=== PATIENT | female | born 1965 | race Caucasian/White ===

== ENCOUNTER 2016-09-23 18:50 | Emergency (ER) | payer BC ==
[2016-09-23] MEDS ORDERED: SODIUM CHLORIDE 0.9% 500 ML IV STA (21:07)
[2016-09-23] MEDS ORDERED: MORPHINE SULFATE 4 MG/ML SYRINGE IVP STA (21:07)
[2016-09-23 21:25] LABS: Appearance,Urine Turbid (Clear); Bilirubin,Urine Negative (Negative); Glucose,Urine (UA) Negative (Negative); Ketones,Urine Negative (Negative); Leukocyte Esterase,Urine Large (Negative); Mucus,Urine Occasional /hpf; Nitrite,Urine Negative (Negative); PH, Urine 5.5 (5.0-8.0); Particle Count 25387; Protein,Urine 2+ (Negative); RBC,Urine >182 /hpf (0-5); Specific Gravity,Urine 1.018 (1.001-1.035); Squamous Epithelial Cell,Urine 5 /hpf (0-4); UA Billing (MACRO vs. MICRO) MICRO; Urobilinogen,Urine <2.0 mg/dL (<2.0); WBC,Urine >182 /hpf (0-5)
[2016-09-23 21:46] LABS: Basophils # (A) 0.1 k/uL (0-0.2); Basophils % (A) 0 %; CH 30.2; Eosinophils # (A) 0.4 k/uL (0-0.7); Eosinophils % (A) 3 %; HCT 34.2 % (34.0-46.0); HDW 3.35; HGB 11.9 gm/dL (11.4-16.0); Luc # (Auto) 0.19; Luc % (Auto) 1; Lymphocytes # (A) 3.6 k/uL (1.0-4.8); Lymphocytes % (A) 24 %; MCH 31.2 pg (25.0-35.0); MCHC 34.9 g/dL (31.0-37.0); MCV 89.6 fL (80.0-100.0); Mean Platelet Volume 7.9; Monocytes # (A) 0.5 k/uL (0-1.0); Monocytes % (A) 4 %; Neutrophils # (A) 10.3 k/uL (1.3-7.7); Neutrophils % (A) 68 %; RBC 3.82 m/uL (3.80-5.40); RDW 15.1 % (11.5-15.5); WBC 15.1 k/uL (3.8-10.6)
[2016-09-23 21:55] LABS: Calcium 10.2 mg/dL (8.4-10.2); Potassium 3.9 mmol/L (3.5-5.1)
[2016-09-23 21:57] LABS: INR 1.5 (<1.2); Partial Thromboplastin Time 27.9 sec (22.0-30.0); Prothrombin Time 14.5 sec (9.0-12.0)
[2016-09-23] MEDS ORDERED: SULFAMETHOX-TMP 800-160MG 1 EACH TAB PO STA (22:05)
[2016-09-23] MEDS ORDERED: CEPHALEXIN 500MG STARTER PACK 4 CAP BTL PO STA (22:07)
--- NOTE | 2016-09-23 22:12 | ED ---
Female Urogenital HPI - General Chief complaint: Urogenital Stated complaint: HEMATURIA Source: patient Mode of arrival: ambulatory Limitations: no limitations - History of Present Illness Initial comments: 51-year-old female with significant past medical history presented for evaluation of hematuria. She states that she is on Coumadin for peripheral vascular disease and recent clotting. She was informed by her vascular surgeon to return to the ED if she should have any bleeding abnormalities. She also currently has a ureteral stent due to kidney stones. She states today she had no flank pain however when she went to the bathroom she noted blood in her urine. There is also associated dysuria. She denies any associated fevers, chills, nausea, vomiting, or other constitutional symptoms. - Related Data Home Medications Medication Instructions Recorded Confirmed Amitriptyline HCl [Elavil] 25 mg PO HS 09/23/16 09/23/16 Gabapentin [Gralise] 600 mg PO TID 09/23/16 09/23/16 Imipramine [Tofranil] 50 mg PO HS 09/23/16 09/23/16 Losartan/Hydrochlorothiazide 1 tab PO DAILY 09/23/16 09/23/16 [Losartan-Hctz 100-25 mg Tab] Potassium Chloride [Klor-Con 20] 20 meq PO DAILY 09/23/16 09/23/16 Pravastatin Sodium [Pravachol] 20 mg PO DAILY 09/23/16 09/23/16 Temazepam [Restoril] 15 mg PO HS 09/23/16 09/23/16 Verapamil HCl [Verelan Pm] 100 mg PO HS 09/23/16 09/23/16 Warfarin Sodium [Coumadin] 6 mg PO DAILY@0 09/23/16 09/23/16 Warfarin [Coumadin] 1 mg PO DAILY@0 09/23/16 09/23/16 metFORMIN HCL 1,000 mg PO BID 09/23/16 09/23/16 oxyCODONE-APAP 10-325MG [Percocet 1 tab PO Q6HR PRN 09/23/16 09/23/16 10-325 mg] tiZANidine HCL [Zanaflex] 18 mg PO TID 09/23/16 09/23/16 Previous Rx's Medication Instructions Recorded Cephalexin [Keflex] 500 mg PO Q12HR #6 cap 09/23/16 Phenazopyridine [Pyridium] 200 mg PO TID #6 tablet 09/23/16 Allergies Allergy/AdvReac Type Severity Reaction Status Date / Time No Known Allergies Allergy Verified 09/23/16 20:20 Review of Systems ROS Statement: Those systems with pertinent positive or pertinent negative responses have been documented in the HPI. ROS Other: All systems not noted in ROS Statement are negative. Constitutional: Denies: fever, chills Eyes: Denies: eye pain, vision change ENT: Denies: ear pain, throat pain Respiratory: Denies: cough, dyspnea Cardiovascular: Denies: chest pain, palpitations Endocrine: Denies: fatigue, polydipsia, polyuria Gastrointestinal: Denies: abdominal pain, nausea, vomiting, diarrhea, constipation Genitourinary: Reports: dysuria, hematuria. Denies: urgency, frequency, discharge Musculoskeletal: Denies: back pain, joint swelling Skin: Denies: rash, lesions Neurological: Denies: headache, weakness Psychiatric: Denies: anxiety, depression Hematological/Lymphatic: Denies: easy bleeding, easy bruising Past Medical History Past Medical History: Diabetes Mellitus, Deep Vein Thrombosis (DVT), Fibromyalgia, Hypertension Additional Past Medical History / Comment(s): herniated disks. History of Any Multi-Drug Resistant Organisms: None Reported Past Surgical History: Section, Hysterectomy Additional Past Surgical History / Comment(s): renal stent. eye surgery. hemerrhoids. 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 Absent: tenderness, meningismus, lymphadenopathy Respiratory exam: Present: normal lung sounds bilaterally. Absent: respiratory distress, wheezes, rales, rhonchi, stridor Cardiovascular Exam: Present: regular rate, normal rhythm, normal heart sounds. Absent: systolic murmur, diastolic murmur, rubs, gallop, clicks GI/Abdominal exam: Present: soft, normal bowel sounds. Absent: distended, tenderness, guarding, rebound, rigid Rectal exam: Present: deferred Extremities exam: Present: full ROM, other (Great toe on the right foot is black and without motor or sensation. Multiple scars to the legs from vein his bypass grafts.). Absent: tenderness, pedal edema, joint swelling, calf tenderness Back exam: Present: normal inspection Neurological exam: Present: alert, oriented X3, CN II-XII intact Psychiatric exam: Present: normal affect, normal mood Skin exam: Present: warm, dry, intact, normal color. Absent: rash Course Vital Signs 09/23/16 09/23/16 19:14 22:46 Temperature 99.4 F 98.2 F Pulse Rate 107 H 85 Respiratory 24 19 Rate Blood Pressure 98/57 129/58 O2 Sat by Pulse 97 96 Oximetry Medical Decision Making - Medical Decision Making 51-year-old female with marketed past medical history presented for evaluation of hematuria. She is currently on Coumadin for peripheral vascular disease and states she recently clotted off her veins to her lower extremities resulting in bypass grafts. She states that she's also had dysuria at this time. On physical examination she has no flank pain or tenderness however there is mild suprapubic tenderness to palpation. Labs revealed a subtherapeutic INR and hematuria with UTI. The patient was given her first dose of Keflex here in the ED. She was informed of all results and through shared decision making it was determined that she would be discharged with instructions to follow-up with her primary care physician and return instructions. The patient acknowledged an understanding of this information and agreed with this plan of care. - Lab Data Result diagrams: 09/23/16 21:38 09/23/16 21:38 Lab Results 09/23/16 09/23/16 09/23/16 Range/Units 20:26 21:38 21:38 WBC 15.1 H (3.8-10.6) k/uL RBC 3.82 (3.80-5.40) m/uL Hgb 11.9 (11.4-16.0) gm/dL Hct 34.2 (34.0-46.0) % MCV 89.6 (80.0-100.0) fL MCH 31.2 (25.0-35.0) pg MCHC 34.9 (31.0-37.0) g/dL RDW 15.1 (11.5-15.5) % Plt Count 379 (150-450) k/uL Neutrophils % 68 % Lymphocytes % 24 % Monocytes % 4 % Eosinophils % 3 % Basophils % 0 % Neutrophils # 10.3 H (1.3-7.7) k/uL Lymphocytes # 3.6 (1.0-4.8) k/uL Monocytes # 0.5 (0-1.0) k/uL Eosinophils # 0.4 (0-0.7) k/uL Basophils # 0.1 (0-0.2) k/uL PT (9.0-12.0) sec INR (<1.2) APTT (22.0-30.0) sec Sodium 137 (137-145) mmol/L Potassium 3.9 (3.5-5.1) mmol/L Chloride 103 (98-107) mmol/L Carbon Dioxide 19 L (22-30) mmol/L Anion Gap 15 mmol/L BUN 41 H (7-17) mg/dL Creatinine 1.60 H (0.52-1.04) mg/dL Est GFR (MDRD) Af Amer 41 (>60 ml/min/1.73 sqM) Est GFR (MDRD) Non-Af 34 (>60 ml/min/1.73 sqM) Glucose 210 H (74-99) mg/dL Calcium 10.2 (8.4-10.2) mg/dL Urine Color Light Red Urine Appearance Turbid H (Clear) Urine pH 5.5 (5.0-8.0) Ur Specific [place] 1.018 (1.001-1.035) Urine Protein 2+ H (Negative) Urine Glucose (UA) Negative (Negative) Urine Ketones Negative (Negative) Urine Blood Moderate H (Negative) Urine Nitrite Negative (Negative) Urine Bilirubin Negative (Negative) Urine Urobilinogen <2.0 (<2.0) mg/dL Ur Leukocyte Esterase Large H (Negative) Urine RBC >182 H (0-5) /hpf Urine WBC >182 H (0-5) /hpf Urine WBC Clumps Many H (None) /hpf Ur Squamous Epith Cells 5 H (0-4) /hpf Hyaline Casts 21 H (0-2) /lpf Urine Mucus Occasional H (None) /hpf 09/23/16 Range/Units 21:38 WBC (3.8-10.6) k/uL RBC (3.80-5.40) m/uL Hgb (11.4-16.0) gm/dL Hct (34.0-46.0) % MCV (80.0-100.0) fL MCH (25.0-35.0) pg MCHC (31.0-37.0) g/dL RDW (11.5-15.5) % Plt Count (150-450) k/uL Neutrophils % % Lymphocytes % % Monocytes % % Eosinophils % % Basophils % % Neutrophils # (1.3-7.7) k/uL Lymphocytes # (1.0-4.8) k/uL Monocytes # (0-1.0) k/uL Eosinophils # (0-0.7) k/uL Basophils # (0-0.2) k/uL PT 14.5 H (9.0-12.0) sec INR 1.5 H (<1.2) APTT 27.9 (22.0-30.0) sec Sodium (137-145) mmol/L Potassium (3.5-5.1) mmol/L Chloride (98-107) mmol/L Carbon Dioxide (22-30) mmol/L Anion Gap mmol/L BUN (7-17) mg/dL Creatinine (0.52-1.04) mg/dL Est GFR (MDRD) Af Amer (>60 ml/min/1.73 sqM) Est GFR (MDRD) Non-Af (>60 ml/min/1.73 sqM) Glucose (74-99) mg/dL Calcium (8.4-10.2) mg/dL Urine Color Urine Appearance (Clear) Urine pH (5.0-8.0) Ur Specific [place] (1.001-1.035) Urine Protein (Negative) Urine Glucose (UA) (Negative) Urine Ketones (Negative) Urine Blood (Negative) Urine Nitrite (Negative) Urine Bilirubin (Negative) Urine Urobilinogen (<2.0) mg/dL Ur Leukocyte Esterase (Negative) Urine RBC (0-5) /hpf Urine WBC (0-5) /hpf Urine WBC Clumps (None) /hpf Ur Squamous Epith Cells (0-4) /hpf Hyaline Casts (0-2) /lpf Urine Mucus (None) /hpf Disposition Clinical Impression: Hemorrhagic cystitis Disposition: HOME SELF-CARE Condition: Stable Instructions: Urinary Tract Infection in Women (ED) Additional Instructions: Please use medication as discussed. Please follow up with family doctor if symptoms have not improved over the next two days. Please return to the emergency room if your symptoms increase or worsen or for any other concerns. Prescriptions: Cephalexin [Keflex] 500 mg PO Q12HR #6 cap Phenazopyridine [Pyridium] 200 mg PO TID #6 tablet Referrals: Sea Horvath MD [Primary Care Provider] - 1-2 days Time of Disposition: 22:12
[2016-09-23 22:48] VITALS: BP 129/58; PULSE 85; RESP 19; TEMP 98.2
== END 2016-09-23 22:35 | disposition home or self-care (01) ==
LOC: EC 18:50
DX: N30.91 Cystitis, unspecified with hematuria (principal); I10 Essential (primary) hypertension; E11.51 Type 2 diabetes mellitus with diabetic peripheral angiopathy without gangrene; I73.9 Peripheral vascular disease, unspecified; F17.200 Nicotine dependence, unspecified, uncomplicated; Z86.718 Personal history of other venous thrombosis and embolism; Z79.01 Long term (current) use of anticoagulants; Z79.84 Long term (current) use of oral hypoglycemic drugs; Z79.899 Other long term (current) drug therapy
CPT/HCPCS: 99283; 96374; 96361; 36415; 80048; 85025; 85610; 85730; 81001; J2270

== ENCOUNTER 2016-10-19 15:42 | Emergency (ER) | payer BC ==
[2016-10-19 16:00] VITALS: TEMP 100.2
[2016-10-19] MEDS ORDERED: MORPHINE SULFATE 4 MG/ML SYRINGE IV STA (16:05)
[2016-10-19] MEDS ORDERED: SODIUM CHLORIDE 0.9% 1,000 ML IV STA (16:05)
[2016-10-19] MEDS ORDERED: ONDANSETRON 4 MG/2 ML VIAL IVP STA (16:06)
[2016-10-19] MEDS ORDERED: ACETAMINOPHEN TAB 500 MG TAB PO STA (16:06)
--- NOTE | 2016-10-19 16:25 | ED ---
Abdominal Pain HPI - General Chief Complaint: Abdominal Pain Stated Complaint: FLANK PAIN, POSS KIDNEY Time Seen by Provider: 10/19/16 16:03 Source: patient, EMS, RN notes reviewed, old records reviewed Mode of arrival: EMS - History of Present Illness Initial Comments: This is a 31-year-old female presenting to the emergency Department chief complaint of increased right flank pain. Patient reports that she was seen earlier today at [facility] by Dr. Sharp who is her urologist. Patient reports that she had a ureteral stent removed and replaced. Patient reports that she's been battling with a urinary tract infection for the past 6 weeks. She is currently on doxycycline and Pyridium. Patient reports that the pain travels from her back towards her front. She reports that her "intestines feel like a twisting". Patient reports that she's been taking [place] for pain. Patient states that she has a history of vascular disease, and had to have her right first and second toe amputated, history of a left-sided prosthetic eye, diabetes, hypertension, peripheral vascular disease.. Patient also complains of increased pain over the right foot. She reports that it does feel cold to touch, and this seems to be acutely worse over the past few hours. - Related Data Home Medications Medication Instructions Recorded Confirmed Amitriptyline HCl [Elavil] 25 mg PO HS 09/23/16 10/19/16 Gabapentin [Gralise] 600 mg PO TID 09/23/16 10/19/16 Imipramine [Tofranil] 50 mg PO HS 09/23/16 10/19/16 Losartan/Hydrochlorothiazide 1 tab PO DAILY 09/23/16 10/19/16 [Losartan-Hctz 100-25 mg Tab] Potassium Chloride [Klor-Con 20] 20 meq PO DAILY 09/23/16 10/19/16 Pravastatin Sodium [Pravachol] 20 mg PO DAILY 09/23/16 10/19/16 Temazepam [Restoril] 15 mg PO HS 09/23/16 10/19/16 Verapamil HCl [Verelan Pm] 100 mg PO HS 09/23/16 10/19/16 metFORMIN HCL 1,000 mg PO BID 09/23/16 10/19/16 oxyCODONE-APAP 10-325MG [Percocet 1 tab PO Q6HR PRN 09/23/16 10/19/16 10-325 mg] Enoxaparin [Lovenox] 100 mg SQ BID 10/19/16 10/19/16 Varenicline [Chantix] 1 mg PO BID 10/19/16 10/19/16 sitaGLIPtin [Januvia] 100 mg PO DAILY 10/19/16 10/19/16 tiZANidine [Zanaflex] 6 mg PO TID 10/19/16 10/19/16 Allergies Allergy/AdvReac Type Severity Reaction Status Date / Time No Known Allergies Allergy Verified 10/19/16 16:06 Review of Systems ROS Statement: Those systems with pertinent positive or pertinent negative responses have been documented in the HPI. ROS Other: All systems not noted in ROS Statement are negative. Past Medical History Past Medical History: Diabetes Mellitus, Deep Vein Thrombosis (DVT), Fibromyalgia, Hypertension Additional Past Medical History / Comment(s): herniated disks. History of Any Multi-Drug Resistant Organisms: None Reported Past Surgical History: Section, Hysterectomy Additional Past Surgical History / Comment(s): renal stent. eye surgery. hemerrhoids. Past Psychological History: No Psychological Hx Reported Smoking Status: Current every day smoker Past Alcohol Use History: None Reported Past Drug Use History: None Reported General Exam - General Exam Comments Initial Comments: 49-year-old female. Patient appears in severe discomfort. General appearance: alert, in no apparent distress Head exam: Present: atraumatic, normocephalic, normal inspection Eye exam: Present: normal appearance, PERRL, EOMI. Absent: scleral icterus, conjunctival injection, periorbital swelling ENT exam: Present: normal exam, mucous membranes moist Neck exam: Present: normal inspection. Absent: tenderness, meningismus, lymphadenopathy Respiratory exam: Present: normal lung sounds bilaterally. Absent: respiratory distress, wheezes, rales, rhonchi, stridor Cardiovascular Exam: Present: regular rate, normal rhythm, normal heart sounds. Absent: systolic murmur, diastolic murmur, rubs, gallop, clicks GI/Abdominal exam: Present: soft, tenderness (Right upper quadrant and right flank tenderness.), normal bowel sounds. Absent: distended, guarding, rebound, rigid Extremities exam: Present: normal inspection, full ROM, normal capillary refill. Absent: tenderness, pedal edema, joint swelling, calf tenderness Right Knee exam: Present: normal inspection, full ROM Lower Leg exam: Absent: normal inspection (Evidence of well-healed incision sites over posterior knee surgery.) Ankle exam: Present: normal inspection, full ROM Foot/Toe exam: Present: full ROM. Absent: normal inspection (Patient has amputated first and second toe which is wrapped up.) Neurovascular tendon exam: Present: pulse deficit, abnormal cap refill, extremity cold to touch (I'm unable to palpate a dorsalis pedis pulse. Doppler ultrasound was also ordered and unable to obtain dorsalis pedis or posterior tibial pulse.) Back exam: Present: normal inspection, CVA tenderness (R) Neurological exam: Present: alert, oriented X3, CN II-XII intact Psychiatric exam: Present: normal affect Skin exam: Present: warm, dry, intact, normal color. Absent: rash Course Vital Signs 10/19/16 10/19/16 15:55 18:33 Temperature 100.2 F H Pulse Rate 121 H 118 H Respiratory 18 17 Rate Blood Pressure 108/55 125/56 O2 Sat by Pulse 93 L 95 Oximetry Medical Decision Making - Medical Decision Making This is a 31-year-old female presenting to the emergency Department chief complaint of increased right flank pain. Patient reports that she was seen earlier today at [facility] by Dr. Sharp who is her urologist. Patient reports that she had a ureteral stent removed and replaced. Patient reports that she's been battling with a urinary tract infection for the past 6 weeks. She is currently on doxycycline and Pyridium. Patient also complains of increased pain over the right foot. She reports that it does feel cold to touch , and this seems to be acutely worse over the past few hours. Patient relates that she had the first and second right toes amputated due to peripheral vascular disease on 10/03/2016. She also had a fem-pop bypass in July. At this time, and unable to obtain a dorsal pedis pulse with ultrasound or posterior tibial pulse of ultrasound. Patient received IV fluids and lab work. A urinary cath was initiated as she has been increasingly incontinent since this surgery. Patient has an elevated white blood count of 18.6. Elevated lactic acid of 4.7. Patient categorizes urosepsis. Discussed case with Dr. Telles, he also examined the patient. At this time we feel that we need to transfer the patient down to [facility] to see her urologist as well as her vascular surgeon, Dr. Tejeda. While in the ED patient received 2 L of fluids, and started on IV Levaquin. Patient received Dilaudid and morphine for pain. [facility]. He accepts the transfer and she'll be transferred requested emergency department to see the vascular team, and her urologist. - Lab Data Result diagrams: 10/19/16 16:45 10/19/16 16:45 Lab Results 10/19/16 10/19/16 10/19/16 Range/Units 16:45 16:45 16:45 WBC 18.6 H (3.8-10.6) k/uL RBC 4.01 (3.80-5.40) m/uL Hgb 12.4 (11.4-16.0) gm/dL Hct 36.8 (34.0-46.0) % MCV 91.8 (80.0-100.0) fL MCH 30.9 (25.0-35.0) pg MCHC 33.6 (31.0-37.0) g/dL RDW 15.1 (11.5-15.5) % Plt Count 268 (150-450) k/uL Neutrophils % 92 % Lymphocytes % 4 % Monocytes % 3 % Eosinophils % 1 % Basophils % 0 % Neutrophils # 17.1 H (1.3-7.7) k/uL Lymphocytes # 0.7 L (1.0-4.8) k/uL Monocytes # 0.6 (0-1.0) k/uL Eosinophils # 0.2 (0-0.7) k/uL Basophils # 0.0 (0-0.2) k/uL Sodium 134 L (137-145) mmol/L Potassium 4.2 (3.5-5.1) mmol/L Chloride 102 (98-107) mmol/L Carbon Dioxide 16 L (22-30) mmol/L Anion Gap 16 mmol/L BUN 30 H (7-17) mg/dL Creatinine 1.30 H (0.52-1.04) mg/dL Est GFR (MDRD) Af Amer 52 (>60 ml/min/1.73 sqM) Est GFR (MDRD) Non-Af 43 (>60 ml/min/1.73 sqM) Glucose 376 H (74-99) mg/dL Plasma Lactic Acid Julio C 4.7 H* (0.7-2.0) mmol/L Calcium 9.4 (8.4-10.2) mg/dL Total Bilirubin 0.3 (0.2-1.3) mg/dL AST 16 (14-36) U/L ALT 23 (9-52) U/L Alkaline Phosphatase 88 (38-126) U/L Total Protein 6.6 (6.3-8.2) g/dL Albumin 3.7 (3.5-5.0) g/dL Amylase 33 (30-110) U/L Lipase 76 (23-300) U/L - Radiology Data Radiology results: report reviewed KUB shows right-sided ureteral stent. Nonacute abdomen. Atherosclerotic vascular disease noted. This is read by Dr. Fowler. Disposition Clinical Impression: Sepsis, Urinary tract disease, Arterial occlusion, lower extremity Disposition: DC/TRNS INTERMEDIATE CARE FAC Condition: Good Referrals: Sea Horvath MD [Primary Care Provider] - 1-2 days Time of Disposition: 18:52 - Out of Hospital Transfer - Req. Specs Out of Hospital Transfer - Requested Specifics: Other Emergency Center ([facility])
[2016-10-19 17:00] LABS: Basophils % (A) 0 %; CH 30.4; CHCM 33.3; Eosinophils # (A) 0.2 k/uL (0-0.7); Eosinophils % (A) 1 %; HCT 36.8 % (34.0-46.0); HGB 12.4 gm/dL (11.4-16.0); Luc # (Auto) 0.08; Luc % (Auto) 0; Lymphocytes # (A) 0.7 k/uL (1.0-4.8); Lymphocytes % (A) 4 %; MCH 30.9 pg (25.0-35.0); MCHC 33.6 g/dL (31.0-37.0); MCV 91.8 fL (80.0-100.0); Mean Platelet Volume 8.7; Monocytes # (A) 0.6 k/uL (0-1.0); Monocytes % (A) 3 %; Neutrophils # (A) 17.1 k/uL (1.3-7.7); Neutrophils % (A) 92 %; RBC 4.01 m/uL (3.80-5.40); RDW 15.1 % (11.5-15.5); WBC 18.6 k/uL (3.8-10.6); WBC (Perox) 18.39
[2016-10-19] MEDS: SODIUM CHLORIDE 0.9% 1,000 ML IV SCH ×2 (17:03→19:10)
[2016-10-19 17:17] LABS: Calcium 9.4 mg/dL (8.4-10.2); Potassium 4.2 mmol/L (3.5-5.1); Total Bilirubin 0.3 mg/dL (0.2-1.3); Total Protein 6.6 g/dL (6.3-8.2)
[2016-10-19] MEDS ORDERED: SODIUM CHLORIDE 0.9% 1,000 ML IV ONE (17:22)
[2016-10-19] MEDS ORDERED: LEVOFLOXACIN 750MG-D5W PMX 750 MG in DEXTROSE/WATER 1 150ML.BAG IVPB STA (17:23)
[2016-10-19] MEDS ORDERED: HYDROmorphone 1 MG/ML 1 ML SYRINGE IVP STA ×2 (17:41→19:06)
--- NOTE | 2016-10-19 18:21 | XR ---
EXAMINATION TYPE: XR KUB DATE OF EXAM: 10/19/2016 COMPARISON: 10/28/2011 HISTORY: Abdominal pain TECHNIQUE: 2 views FINDINGS: Bowel gas pattern is normal. There is no sign of intestinal obstruction or pneumoperitoneum . Fecal pattern is normal. There is double-J ureteral stent noted. Lung bases are clear. There are no pathologic calcifications over the kidneys. There is left iliac artery stent noted. There is apparen t stent in the upper abdominal aorta. IMPRESSION: Right-sided ureteral stent. Nonacute abdomen. Atherosclerotic vascular disease.
[2016-10-19 18:34] VITALS: BP 125/56; PULSE 118; RESP 17
[2016-10-19 18:56] LABS: Amorphous Sediment,Urine Rare /hpf; Appearance,Urine Cloudy (Clear); Bacteria,Urine Many /hpf; Bilirubin,Urine Negative (Negative); Glucose,Urine (UA) 3+ (Negative); Ketones,Urine Negative (Negative); Leukocyte Esterase,Urine Large (Negative); Nitrite,Urine Positive (Negative); Particle Count 15779; Protein,Urine 2+ (Negative); RBC,Urine >182 /hpf (0-5); Specific Gravity,Urine 1.014 (1.001-1.035); UA Billing (MACRO vs. MICRO) MICRO; Urobilinogen,Urine <2.0 mg/dL (<2.0); WBC,Urine >182 /hpf (0-5)
== END 2016-10-19 19:15 ==
LOC: EC 15:42
DX: A41.9 Sepsis, unspecified organism (principal); N39.0 Urinary tract infection, site not specified; I74.3 Embolism and thrombosis of arteries of the lower extremities; R10.11 Right upper quadrant pain; E11.9 Type 2 diabetes mellitus without complications; M79.7 Fibromyalgia; I10 Essential (primary) hypertension; F17.200 Nicotine dependence, unspecified, uncomplicated; Z86.718 Personal history of other venous thrombosis and embolism; Z79.84 Long term (current) use of oral hypoglycemic drugs; Z79.899 Other long term (current) drug therapy
CPT/HCPCS: 99285; 96365; 96375 ×3; 96376; 36415; 80053; 82150; 83605; 83690; 85025; 81001; 87040; 74000; J2270; J2405; J1170; J1956

== ENCOUNTER 2017-08-12 15:05 | Emergency (ER) | payer BC ==
[2017-08-12 15:24] VITALS: BP 156/85; PULSE 91; RESP 18; TEMP 98.3
[2017-08-12] MEDS ORDERED: MORPHINE SULFATE 2 MG/ML SYRINGE IM STA (15:46)
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
== END 2017-08-12 16:03 | disposition home or self-care (01) ==
LOC: EC 15:05
DX: G89.21 Chronic pain due to trauma (principal); M79.671 Pain in right foot; M79.7 Fibromyalgia; E78.5 Hyperlipidemia, unspecified; I10 Essential (primary) hypertension; M19.90 Unspecified osteoarthritis, unspecified site; N28.9 Disorder of kidney and ureter, unspecified; E11.9 Type 2 diabetes mellitus without complications; F32.9 Major depressive disorder, single episode, unspecified; Z86.718 Personal history of other venous thrombosis and embolism; Z89.431 Acquired absence of right foot; Z89.432 Acquired absence of left foot; Z79.01 Long term (current) use of anticoagulants; Z79.4 Long term (current) use of insulin; Z79.84 Long term (current) use of oral hypoglycemic drugs; Z79.891 Long term (current) use of opiate analgesic; Z79.899 Other long term (current) drug therapy; Z87.891 Personal history of nicotine dependence
CPT/HCPCS: 99283; 96372; J2270

== ENCOUNTER 2017-08-12 23:32 | Emergency (ER) | payer BC ==
[2017-08-12 23:46] VITALS: RESP 18; TEMP 98.3
[2017-08-13] MEDS ORDERED: KETOROLAC 30 MG/ML 1 ML VIAL IM STA (01:31)
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
[2017-08-13 01:58] VITALS: BP 145/85; PULSE 74
== END 2017-08-13 01:57 | disposition home or self-care (01) ==
LOC: EC 23:32
DX: S98.921A Partial traumatic amputation of right foot, level unspecified, initial encounter (principal); M86.671 Other chronic osteomyelitis, right ankle and foot; E78.5 Hyperlipidemia, unspecified; I10 Essential (primary) hypertension; E11.9 Type 2 diabetes mellitus without complications; M79.7 Fibromyalgia; F32.9 Major depressive disorder, single episode, unspecified; Z87.891 Personal history of nicotine dependence; Z79.01 Long term (current) use of anticoagulants; Z79.4 Long term (current) use of insulin; Z79.891 Long term (current) use of opiate analgesic; Z79.899 Other long term (current) drug therapy; Z86.718 Personal history of other venous thrombosis and embolism; Z87.39 Personal history of other diseases of the musculoskeletal system and connective tissue; X58.XXXA Exposure to other specified factors, initial encounter
CPT/HCPCS: 99283; 96372; J1885

== ENCOUNTER → 2017-08-13 | Outpatient (CLI) | payer BC ==
[2017-08-13 14:48] LABS: Basophils % (A) 0 %; Eosinophils # (A) 0.2 k/uL (0-0.7); Eosinophils % (A) 1 %; HCT 43.2 % (34.0-46.0); HGB 14.6 gm/dL (11.4-16.0); Lymphocytes # (A) 2.9 k/uL (1.0-4.8); Lymphocytes % (A) 23 %; MCH 29.9 pg (25.0-35.0); MCHC 33.9 g/dL (31.0-37.0); MCV 88.2 fL (80.0-100.0); Mean Platelet Volume 7.9; Monocytes # (A) 0.6 k/uL (0-1.0); Monocytes % (A) 4 %; Neutrophils # (A) 8.9 k/uL (1.3-7.7); Neutrophils % (A) 70 %; Platelet Count 348 k/uL (150-450); RBC 4.89 m/uL (3.80-5.40); WBC 12.7 k/uL (3.8-10.6)
[2017-08-13 15:03] LABS: Prothrombin Time 48.1 sec (9.0-12.0)
[2017-08-13 15:08] LABS: INR 5.3 (<1.2)
== END | disposition home or self-care (01) ==
LOC: LABWHC1 14:00
PROVIDERS: ATTEND Nurse Practitioner Adult Health
DX: D68.59 Other primary thrombophilia (principal)
CPT/HCPCS: 36415; 85025; 85610

== ENCOUNTER → 2017-09-02 | Outpatient (CLI) | payer BC ==
--- NOTE | 2017-09-02 13:42 | US ---
EXAMINATION TYPE: US venous doppler duplex LE RT DATE OF EXAM: 09/02/2017 11:42 AM COMPARISON: NONE CLINICAL HISTORY: 52-year-old female M79.604 Pain in right leg. SIDE PERFORMED: Right TECHNIQUE: The lower extremity deep venous system is examined utilizing real time linear array sonog iker with graded compression, doppler sonography and color-flow sonography. VESSELS IMAGED: External Iliac Vein (EIV) Common Femoral Vein Deep Femoral Vein Greater Saphenous Vein * Femoral Vein Popliteal Vein Small Saphenous Vein * Proximal Calf Veins (* superficial vessels) Right Leg: Negative for DVT IMPRESSION: No evidence for DVT within the right lower extremity imaged from the groin to the upper calf.
== END | disposition home or self-care (01) ==
LOC: RADUSWWP 11:14
PROVIDERS: ATTEND Thoracic Surgery (Cardiothoracic Vascular Surgery)
DX: M79.604 Pain in right leg (principal)

== ENCOUNTER 2017-10-24 01:58 | Emergency (ER) | payer BC ==
[2017-10-24 02:08] VITALS: PULSE 75
[2017-10-24] MEDS ORDERED: SODIUM CHLORIDE 0.9% 1,000 ML IV STA (02:52)
[2017-10-24] MEDS ORDERED: ONDANSETRON 4 MG/2 ML VIAL IVP STA (02:53)
[2017-10-24] MEDS ORDERED: MORPHINE SULFATE 4 MG/ML SYRINGE IV STA (02:53)
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
[2017-10-24 03:35] LABS: Basophils % (A) 0 %; Eosinophils # (A) 0.2 k/uL (0-0.7); Eosinophils % (A) 2 %; HCT 40.7 % (34.0-46.0); HGB 13.2 gm/dL (11.4-16.0); Lymphocytes # (A) 3.1 k/uL (1.0-4.8); Lymphocytes % (A) 29 %; MCH 29.1 pg (25.0-35.0); MCHC 32.4 g/dL (31.0-37.0); MCV 89.7 fL (80.0-100.0); Mean Platelet Volume 8.4; Monocytes # (A) 0.4 k/uL (0-1.0); Monocytes % (A) 4 %; Neutrophils # (A) 6.9 k/uL (1.3-7.7); Neutrophils % (A) 64 %; Platelet Count 276 k/uL (150-450); RBC 4.54 m/uL (3.80-5.40); RDW 13.8 % (11.5-15.5); WBC 10.8 k/uL (3.8-10.6)
[2017-10-24 03:51] LABS: Albumin 4.2 g/dL (3.5-5.0); Calcium 9.3 mg/dL (8.4-10.2); Potassium 3.9 mmol/L (3.5-5.1); Total Bilirubin 0.2 mg/dL (0.2-1.3); Total Protein 7.3 g/dL (6.3-8.2)
[2017-10-24 03:56] LABS: INR 1.6 (<1.2); Partial Thromboplastin Time 30.1 sec (22.0-30.0); Prothrombin Time 15.1 sec (9.0-12.0)
--- NOTE | 2017-10-24 04:21 | XR ---
EXAMINATION TYPE: XR ankle complete RT DATE OF EXAM: 10/24/2017 COMPARISON: 06/18/2017 HISTORY: Right foot infection TECHNIQUE: 2 views FINDINGS: There is amputation deformity of the right foot at the level of the talus and calcaneus. An kle mortise is anatomic. I see no focal bone destruction. There is a small metal anchor in the anteri or calcaneus. IMPRESSION: Amputation deformity. No definite sign of osteomyelitis. No change.
[2017-10-24 04:56] VITALS: BP 117/52; RESP 17; TEMP 97.4
== END 2017-10-24 04:51 | disposition home or self-care (01) ==
LOC: EC 01:58
DX: M79.89 Other specified soft tissue disorders (principal); E11.9 Type 2 diabetes mellitus without complications; M79.7 Fibromyalgia; E78.5 Hyperlipidemia, unspecified; I10 Essential (primary) hypertension; M19.90 Unspecified osteoarthritis, unspecified site; F32.9 Major depressive disorder, single episode, unspecified; Z86.718 Personal history of other venous thrombosis and embolism; Z87.891 Personal history of nicotine dependence; Z89.431 Acquired absence of right foot; Z89.432 Acquired absence of left foot; Z79.891 Long term (current) use of opiate analgesic; Z79.4 Long term (current) use of insulin; Z79.01 Long term (current) use of anticoagulants; Z79.899 Other long term (current) drug therapy; Z98.890 Other specified postprocedural states
CPT/HCPCS: 36415; 80053; 85025; 85610; 85730; 87040; 73610; 99283; 96374; 96375; 96361; J2270; J2405

== ENCOUNTER 2017-11-07 08:16 | Day surgery (SDC) | payer BC ==
[2017-11-05 16:13] VITALS: BMI 33.9
[~2017-11-07 08:16] MED LIST: DEXAMETHASONE SOD PHOSPHATE 10 MG/ML 1 ML VIAL IV ONE; FAMOTIDINE 20 MG/2 ML VIAL IV ONE; LACTATED RINGERS 1,000 ML IV SCH; MIDAZOLAM 2 MG/2 ML VIAL IV PRN; ONDANSETRON 4 MG/2 ML VIAL IVP ONE; Pre Op ABX Message 1 EACH MISC MISCELLANE ONE; SCOPOLAMINE 1.5MG/72HR PATCH TRANSDERM ONE; fentaNYL (PF) 50 MCG/ML 2 ML AMP IV PRN
[2017-11-07 08:50] LABS: Glucose,Whole Blood 137 mg/dL (75-99)
[2017-11-07 09:00] LABS: INR 2.1 (<1.2); Prothrombin Time 18.6 sec (9.0-12.0)
[2017-11-07] MEDS ORDERED: fentaNYL (PF) 50 MCG/ML 2 ML AMP ONE ×2 (09:37)
[2017-11-07] MEDS ORDERED: LIDOCAINE 1% INJ 10MG/ML (20 ML MDV) ONE ×2 (09:37)
[2017-11-07] MEDS ORDERED: MIDAZOLAM 2 MG/2 ML VIAL ONE ×2 (09:37)
[2017-11-07] MEDS ORDERED: PROPOFOL 10 MG/ML 20 ML VIAL IV ONE ×2 (09:37)
[2017-11-07] MEDS ORDERED: CIPROFLOXACIN-DEXAMETH 0.3-0.1% DROPS 7.5 ML BTL BOTH EARS ONE (09:56)
[2017-11-07 10:22] VITALS: RESP 16; TEMP 97
--- NOTE | 2017-11-07 10:35 | P.OP ---
Date of Procedure: 11/07/17 Preoperative Diagnosis: Eustachian tube dysfunction Postoperative Diagnosis: Same Procedure(s) Performed: Bilateral direct microscopic tympanostomy and tube placement Anesthesia: MIKE Surgeon: Benedict Wood Estimated Blood Loss (ml): 0 Pathology: none sent Condition: stable Disposition: PACU Indications for Procedure: This patient presented to the office with persistent eustachian tube dysfunction. She was given treatment of hyperbaric oxygen therapy and cannot tolerate because of the eustachian tube dysfunction and tube placement as needed. All risks, benefits, and alternative therapies were discussed. Operative Findings: Thickened tympanic membranes Description of Procedure: Prior to surgery, all risks, benefits, and alternative therapies were discussed again with the patient and family. Risks of bleeding, need for second tubes, perforation, early extrusion of tubes, etc. etc. were explained. All questions were answered and a consent was obtained. This patient was taken to the operative room and placed in the supine position. Mask inhalation anesthesia was performed by the department of anesthesia. The patient was monitored throughout the entire case by the department of anesthesia. Both tympanic membranes were visualized with an operating Zeiss microscope. Cerumen and epithelial debris was removed from the external auditory canals bilaterally. The tympanic membranes were visualized under an operative microscope. Tympanostomy incisions were made inferiorly. Fluid was suctioned from the middle ear space with use of a #3 and #5 Calvillo suction with care to avoid any trauma to the middle ear structures. Ventilation tubes were then inserted bilaterally. Excellent placement was obtained. The patient was then taken to the recovery room in excellent condition by the department of anesthesia and monitored through the recovery process by the recovery room nurse supervised by anesthesia. A follow-up appointment has been scheduled.
[2017-11-07 10:49] LABS: Glucose,Whole Blood 192 mg/dL (75-99)
[2017-11-07 11:33] VITALS: BP 112/75
[2017-11-07 12:11] VITALS: PULSE 74
[2017-11-07 12:13] LABS: Glucose,Whole Blood 194 mg/dL (75-99)
== END 2017-11-07 12:35 | disposition home or self-care (01) ==
LOC: OR 08:16
PROVIDERS: ATTEND Otolaryngology
DX: H69.83 Other specified disorders of Eustachian tube, bilateral (principal); H90.3 Sensorineural hearing loss, bilateral; E11.51 Type 2 diabetes mellitus with diabetic peripheral angiopathy without gangrene; Z79.4 Long term (current) use of insulin; I10 Essential (primary) hypertension; J44.9 Chronic obstructive pulmonary disease, unspecified; E66.9 Obesity, unspecified; Z68.33 Body mass index [BMI] 33.0-33.9, adult; D64.9 Anemia, unspecified; Z87.891 Personal history of nicotine dependence; D68.9 Coagulation defect, unspecified; Z86.718 Personal history of other venous thrombosis and embolism; Z95.820 Peripheral vascular angioplasty status with implants and grafts; Z79.01 Long term (current) use of anticoagulants; Z79.891 Long term (current) use of opiate analgesic; Z79.899 Other long term (current) drug therapy; Z87.442 Personal history of urinary calculi; M79.7 Fibromyalgia; Z97.0 Presence of artificial eye
CPT/HCPCS: 85610; 69436; J2250; J1100; J2405; J2001; J3010; J2704

== ENCOUNTER 2017-11-16 23:49 | Emergency (ER) | payer BC ==
[2017-11-17 00:06] VITALS: BP 163/74; PULSE 86; RESP 28; TEMP 99
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
--- NOTE | 2017-11-17 01:48 | US ---
EXAMINATION TYPE: US venous doppler duplex LE RT DATE OF EXAM: 11/17/2017 1:35 AM COMPARISON: US 2018 CLINICAL HISTORY: Pain. Right calf pain, patient on blood thinners SIDE PERFORMED: Right TECHNIQUE: The lower extremity deep venous system is examined utilizing real time linear array sonog iker with graded compression, doppler sonography and color-flow sonography. VESSELS IMAGED: External Iliac Vein (EIV) Common Femoral Vein Deep Femoral Vein Greater Saphenous Vein * Femoral Vein Popliteal Vein Small Saphenous Vein * Proximal Calf Veins (* superficial vessels) Right Leg: Appears negative for DVT IMPRESSION: Negative exam. No evidence of deep venous thrombosis in the right leg.
== END 2017-11-17 02:55 | disposition home or self-care (01) ==
LOC: EC 23:49
DX: G89.18 Other acute postprocedural pain (principal); M79.671 Pain in right foot; E78.5 Hyperlipidemia, unspecified; I10 Essential (primary) hypertension; E11.9 Type 2 diabetes mellitus without complications; M79.7 Fibromyalgia; F32.9 Major depressive disorder, single episode, unspecified; Z79.01 Long term (current) use of anticoagulants; Z79.4 Long term (current) use of insulin; Z79.891 Long term (current) use of opiate analgesic; Z79.899 Other long term (current) drug therapy; Z86.73 Personal history of transient ischemic attack (TIA), and cerebral infarction without residual deficits; Z87.39 Personal history of other diseases of the musculoskeletal system and connective tissue; Z89.431 Acquired absence of right foot; Z89.432 Acquired absence of left foot
CPT/HCPCS: 99283

== ENCOUNTER 2018-01-13 19:15 | Emergency (ER) | payer BC ==
[2018-01-13] MEDS ORDERED: SODIUM CHLORIDE 0.9% 1,000 ML IV STA (20:08)
[2018-01-13] MEDS ORDERED: ONDANSETRON 4 MG/2 ML VIAL IVP STA (20:08)
[2018-01-13] MEDS ORDERED: MORPHINE SULFATE 4 MG/ML SYRINGE IV STA (20:08)
[2018-01-13 20:40] LABS: Basophils % (A) 0 %; Eosinophils # (A) 0.1 k/uL (0-0.7); Eosinophils % (A) 1 %; HCT 50.1 % (34.0-46.0); HGB 16.3 gm/dL (11.4-16.0); Lymphocytes # (A) 3.1 k/uL (1.0-4.8); Lymphocytes % (A) 19 %; MCH 28.3 pg (25.0-35.0); MCHC 32.5 g/dL (31.0-37.0); MCV 87.1 fL (80.0-100.0); Mean Platelet Volume 7.6; Monocytes # (A) 0.5 k/uL (0-1.0); Monocytes % (A) 3 %; Neutrophils # (A) 12.6 k/uL (1.3-7.7); Neutrophils % (A) 77 %; Platelet Count 384 k/uL (150-450); RBC 5.75 m/uL (3.80-5.40); RDW 13.5 % (11.5-15.5); WBC 16.5 k/uL (3.8-10.6)
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
[2018-01-13 20:48] LABS: Albumin 4.8 g/dL (3.5-5.0); Calcium 10.2 mg/dL (8.4-10.2); Potassium 4.1 mmol/L (3.5-5.1); Total Bilirubin 0.5 mg/dL (0.2-1.3); Total Protein 8.6 g/dL (6.3-8.2)
[2018-01-13 21:39] LABS: Appearance,Urine Cloudy (Clear); Bilirubin,Urine Negative (Negative); Blood,Urine Small (Negative); Color,Urine Yellow; Glucose,Urine (UA) 3+ (Negative); Hyaline Casts,Urine 15 /lpf (0-2); Ketones,Urine Trace (Negative); Leukocyte Esterase,Urine Trace (Negative); Mucus,Urine Many /hpf; Nitrite,Urine Negative (Negative); Protein,Urine 3+ (Negative); RBC,Urine 4 /hpf (0-5); Specific Gravity,Urine 1.024 (1.001-1.035); Squamous Epithelial Cell,Urine 9 /hpf (0-4); WBC,Urine 17 /hpf (0-5)
[2018-01-13] MEDS ORDERED: MORPHINE SULFATE ER 15 MG TABLET PO STA (22:04)
[2018-01-13] MEDS ORDERED: ONDANSETRON 4 MG ODT STARTER PACK 2 TAB BTL PO STA (22:07)
[2018-01-13 22:24] VITALS: BP 96/54; PULSE 83; RESP 20; TEMP 97.5
== END 2018-01-13 22:30 | disposition home or self-care (01) ==
LOC: EC 19:15
DX: K52.9 Noninfective gastroenteritis and colitis, unspecified (principal); F11.23 Opioid dependence with withdrawal; D72.829 Elevated white blood cell count, unspecified; E78.5 Hyperlipidemia, unspecified; I10 Essential (primary) hypertension; E11.9 Type 2 diabetes mellitus without complications; M79.7 Fibromyalgia; M19.90 Unspecified osteoarthritis, unspecified site; F32.9 Major depressive disorder, single episode, unspecified; Z87.891 Personal history of nicotine dependence; Z79.01 Long term (current) use of anticoagulants; Z79.4 Long term (current) use of insulin; Z79.899 Other long term (current) drug therapy; Z86.718 Personal history of other venous thrombosis and embolism; Z89.431 Acquired absence of right foot; Z89.432 Acquired absence of left foot
CPT/HCPCS: 36415; 80053; 82150; 83690; 85025; 81001; 99284; 96374; 96375; 96361 ×2; J2270; J2405; S0119

== ENCOUNTER → 2018-02-27 | Outpatient (CLI) | payer BC ==
[2018-02-27 13:49] LABS: Basophils % (A) 1 %; Eosinophils # (A) 0.2 k/uL (0-0.7); Eosinophils % (A) 3 %; Lymphocytes # (A) 2.4 k/uL (1.0-4.8); Lymphocytes % (A) 29 %; MCH 29.9 pg (25.0-35.0); MCHC 33.6 g/dL (31.0-37.0); MCV 88.9 fL (80.0-100.0); Mean Platelet Volume 7.6; Monocytes # (A) 0.3 k/uL (0-1.0); Monocytes % (A) 4 %; Neutrophils # (A) 5.1 k/uL (1.3-7.7); Neutrophils % (A) 63 %; Platelet Count 237 k/uL (150-450); RBC 4.28 m/uL (3.80-5.40); WBC 8.1 k/uL (3.8-10.6)
[2018-02-27 13:50] LABS: HGB 12.8 gm/dL (11.4-16.0)
[2018-02-27 19:30] LABS: Albumin 4.2 g/dL (3.80-4.90); Anion Gap 8.4 mmol/L (4.00-12.00); Calcium 8.8 mg/dL (8.7-10.3); Carbon Dioxide 28.6 mmol/L (21.6-31.8); Globulin 2.1 g/dL (1.6-3.3); Potassium 3.9 mmol/L (3.5-5.5); Total Bilirubin 0.2 mg/dL (0.3-1.2); Total Protein 6.3 g/dL (6.2-8.2)
== END ==
LOC: LABWHC1 13:01
PROVIDERS: ATTEND Internal Medicine Infectious Disease
DX: M86.8X8 Other osteomyelitis, other site (principal)
CPT/HCPCS: 36415; 80053; 84134; 85025

== ENCOUNTER → 2018-02-28 | Outpatient (CLI) | payer BC ==
--- NOTE | 2018-02-28 08:32 | CT ---
EXAMINATION TYPE: CT foot RT w con DATE OF EXAM: 02/28/2018 COMPARISON: Right ankle x-ray October 24, 2017 HISTORY: Osteomyelitis per order. Assess abscess for possible surgery per order. Right foot pain and swelling per patient. History of prior amputation and diabetes. CT DLP: 187.70 mGycm Automated exposure control for dose reduction was used. CONTRAST: Performed with IV Contrast, patient injected with 100 mL of Isovue 300. Imaging of the right foot is performed FINDINGS: There is redemonstration of amputation of the majority of right foot. Osseous structures show periart icular demineralization in the distal tibia and fibula. There is amputation of the anterior aspect of the talus with irregular soft tissue from the skin surf cuong extending to the anterior talar margin, there is nonspecific sclerosis involving the anterior sup erior aspect of the talus redemonstrated. There is well-defined amputation defect of the anterior aspect of the calcaneus with a ossific staple along the anterior aspect of the calcaneus redemonstrated. Soft tissue density extends to the anteri or margin of the calcaneus where there is slight cortical irregularity and sclerosis, similar finding s are seen in the anterior aspect of the talus. Subtalar joint is maintained. Remainder of foot has been amputated. No obvious change from recent ank le x-ray. Distal Achilles tendon is intact. Mild diffuse subcutaneous edema is seen. No well-formed f luid collection or abscess is clearly identified. IMPRESSION: NONSPECIFIC FINDINGS DETAILED ABOVE COULD REFLECT POSTSURGICAL SCARRING, CANNOT EXCLUDE SOFT TISSU E INFECTION. NO WELL-FORMED FLUID COLLECTION OR ABSCESS IS SEEN.
== END | disposition home or self-care (01) ==
LOC: RADCTMAIN 07:01
PROVIDERS: ATTEND Internal Medicine Infectious Disease
DX: L90.5 Scar conditions and fibrosis of skin (principal)
CPT/HCPCS: 73701; Q9967

== ENCOUNTER → 2018-08-12 | Outpatient (CLI) | payer BC ==
--- NOTE | 2018-08-13 15:00 | NM ---
EXAMINATION TYPE: NM WBC limited DATE OF EXAM: 08/13/2018 COMPARISON: 06/19/2017 HISTORY: Osteomyelitis right foot TECHNIQUE: Following administration of 17.3 mCi Tc99m Ceretec. Images obtained 4 hour(s) and 25 terrie r(s) post injection. FINDINGS: There is increased uptake involving the soft tissues of both feet greater on the left suggestive of c ellulitis. Delayed imaging demonstrates localized uptake involving the anterior margin of the remaini ng portion of the calcaneus bilaterally. IMPRESSION: Findings are suggestive of bilateral cellulitis greater on the left and osteomyelitis of distal remai facundo portion of the bilateral foot\calcaneus.
== END | disposition home or self-care (01) ==
LOC: RADNMMAIN 06:56
PROVIDERS: ATTEND Family Medicine
DX: M86.9 Osteomyelitis, unspecified (principal)
CPT/HCPCS: 78805; A9569

== ENCOUNTER 2019-04-05 01:09 | Emergency (ER) | payer BC ==
[2019-04-05 01:18] VITALS: RESP 18; TEMP 98.2
[2019-04-05 01:48] LABS: Appearance,Urine Clear (Clear); Bilirubin,Urine Negative (Negative); Blood,Urine Small (Negative); Color,Urine Yellow; Glucose,Urine (UA) 3+ (Negative); Ketones,Urine Trace (Negative); Leukocyte Esterase,Urine Negative (Negative); Mucus,Urine Occasional /hpf; Nitrite,Urine Negative (Negative); Protein,Urine 2+ (Negative); RBC,Urine 3 /hpf (0-5); Specific Gravity,Urine 1.027 (1.001-1.035); Squamous Epithelial Cell,Urine 8 /hpf (0-4); Urobilinogen,Urine <2.0 mg/dL (<2.0); WBC,Urine 3 /hpf (0-5)
[2019-04-05] MEDS ORDERED: MORPHINE SULFATE 4 MG/ML SYRINGE IVP STA (01:49)
[2019-04-05] MEDS ORDERED: ONDANSETRON 4 MG/2 ML VIAL IVP STA (01:49)
[2019-04-05 02:12] LABS: Basophils # (A) 0.1 k/uL (0-0.2); Basophils % (A) 1 %; Eosinophils # (A) 0.2 k/uL (0-0.7); Eosinophils % (A) 2 %; HCT 46.1 % (34.0-46.0); HGB 15.3 gm/dL (11.4-16.0); Lymphocytes # (A) 2.6 k/uL (1.0-4.8); Lymphocytes % (A) 19 %; MCH 29.7 pg (25.0-35.0); MCHC 33.1 g/dL (31.0-37.0); MCV 89.8 fL (80.0-100.0); Mean Platelet Volume 8.6; Monocytes # (A) 0.5 k/uL (0-1.0); Monocytes % (A) 4 %; Neutrophils # (A) 9.7 k/uL (1.3-7.7); Neutrophils % (A) 73 %; Platelet Count 306 k/uL (150-450); RBC 5.13 m/uL (3.80-5.40); RDW 13.5 % (11.5-15.5); WBC 13.2 k/uL (3.8-10.6)
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
[2019-04-05 02:26] LABS: Albumin 4.5 g/dL (3.5-5.0); Calcium 9.5 mg/dL (8.4-10.2); Potassium 3.5 mmol/L (3.5-5.1); Total Bilirubin 0.4 mg/dL (0.2-1.3); Total Protein 8.2 g/dL (6.3-8.2)
[2019-04-05] MEDS ORDERED: MORPHINE SULFATE 4 MG/ML SYRINGE IM STA (02:45)
[2019-04-05] MEDS ORDERED: ONDANSETRON ODT 4 MG TAB PO STA (02:46)
--- NOTE | 2019-04-05 02:49 | CT ---
EXAMINATION TYPE: CT abdomen pelvis wo con DATE OF EXAM: 04/05/2019 COMPARISON: 11/14/2012 HISTORY: Flank pain CT DLP: 1536 mGycm Automated exposure control for dose reduction was used. Multiple axial sections were obtained from the diaphragm to the floor the pelvis with no contrast. Lung bases are clear. Heart size is normal. There is no pericardial effusion. There is some fatty dep osition at the right atrial appendage. There is no pleural effusion. Liver spleen pancreas gallbladder appear normal. Bile ducts are not dilated. Stomach is intact. There is small hiatal hernia. There is no adrenal mass. Kidneys have normal size. There is 5 mm calcification at the left renal pel vis. Ureters are not dilated. There is no hydronephrosis. There is aortoiliac stent noted. There is n o retroperitoneal adenopathy. Bladder distends smoothly. There is no inguinal hernia. There is hyster ectomy. There is no free fluid in the pelvis. There is no evidence of a pelvic mass. Appendix is not seen. Th ere is no sign of thickened appendix. There is one similar cortical cyst posterior left kidney. There is no mesenteric edema. There is no a scites or free air. There is no evidence of a bowel obstruction. There is degenerative disc space narrowing at L4-5. There is no lumbar compression fracture. The bony pelvis appears intact. IMPRESSION: Atherosclerotic vascular disease. Aortoiliac stent noted. No sign of acute abdomen and pelvis. There is clearing of the minimal left side hydronephrosis compared to old exam.
[2019-04-05 03:45] VITALS: BP 137/85; PULSE 99
== END 2019-04-05 03:54 | disposition home or self-care (01) ==
LOC: EC 01:09
DX: R10.9 Unspecified abdominal pain (principal); D72.829 Elevated white blood cell count, unspecified; R93.422 Abnormal radiologic findings on diagnostic imaging of left kidney; R31.9 Hematuria, unspecified; I10 Essential (primary) hypertension; E78.5 Hyperlipidemia, unspecified; E11.9 Type 2 diabetes mellitus without complications; M79.7 Fibromyalgia; F32.9 Major depressive disorder, single episode, unspecified; M19.90 Unspecified osteoarthritis, unspecified site; F17.200 Nicotine dependence, unspecified, uncomplicated; Z79.01 Long term (current) use of anticoagulants; Z79.4 Long term (current) use of insulin; Z79.891 Long term (current) use of opiate analgesic; Z79.899 Other long term (current) drug therapy; Z86.718 Personal history of other venous thrombosis and embolism; Z87.442 Personal history of urinary calculi; Z89.512 Acquired absence of left leg below knee; Z89.511 Acquired absence of right leg below knee; Z82.49 Family history of ischemic heart disease and other diseases of the circulatory system; Z53.8 Procedure and treatment not carried out for other reasons
CPT/HCPCS: 99284; 96372; 36415; 80053; 85025; 81001; 74176; J2270

== ENCOUNTER 2019-07-22 17:00 | Emergency (ER) | payer BC ==
[2019-07-22 17:09] VITALS: TEMP 98.8
[2019-07-22] MEDS ORDERED: KETOROLAC 30 MG/ML 1 ML VIAL IVP STA (17:21)
[2019-07-22] MEDS ORDERED: ONDANSETRON 4 MG/2 ML VIAL IVP STA (17:21)
[2019-07-22] MEDS ORDERED: HYDROmorphone 0.5 MG/0.5 ML SYRINGE IVP STA (17:21)
[2019-07-22] MEDS ORDERED: SODIUM CHLORIDE 0.9% 1,000 ML IV STA (17:21)
[2019-07-22 17:57] LABS: Basophils % (A) 0 %; Eosinophils # (A) 0.1 k/uL (0-0.7); Eosinophils % (A) 0 %; HCT 44.2 % (34.0-46.0); HGB 14.7 gm/dL (11.4-16.0); Lymphocytes # (A) 1.4 k/uL (1.0-4.8); Lymphocytes % (A) 9 %; MCH 30.8 pg (25.0-35.0); MCHC 33.3 g/dL (31.0-37.0); MCV 92.3 fL (80.0-100.0); Mean Platelet Volume 8.9; Monocytes # (A) 0.4 k/uL (0-1.0); Monocytes % (A) 3 %; Neutrophils # (A) 13.4 k/uL (1.3-7.7); Neutrophils % (A) 87 %; Platelet Count 251 k/uL (150-450); RBC 4.79 m/uL (3.80-5.40); RDW 14.1 % (11.5-15.5); WBC 15.4 k/uL (3.8-10.6)
--- NOTE | 2019-07-22 18:06 | XR ---
EXAMINATION TYPE: XR KUB DATE OF EXAM: 07/22/2019 COMPARISON: October 19, 2016 HISTORY: Pain TECHNIQUE: Single supine KUB image of the abdomen is obtained FINDINGS: Small bowel demonstrates no evidence for dilatation or air fluid levels. Gas and fecal material is seen in non-distended colon. No convincing evidence for pneumoperitoneum. No unusual calcifications. The lung bases are clear. The osseous structures are intact. Aortoiliac stent graft is in place. IMPRESSION: 1. Overall nonobstructive bowel gas pattern.
[2019-07-22 18:14] LABS: Albumin 4.4 g/dL (3.5-5.0); Potassium 4.3 mmol/L (3.5-5.1); Total Bilirubin 0.3 mg/dL (0.2-1.3); Total Protein 7.7 g/dL (6.3-8.2)
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
[2019-07-22 18:36] LABS: Appearance,Urine Cloudy (Clear); Bacteria,Urine Rare /hpf; Bilirubin,Urine Negative (Negative); Blood,Urine Large (Negative); Budding Yeast,Urine Few /hpf; Color,Urine Light Red; Glucose,Urine (UA) 3+ (Negative); Ketones,Urine Trace (Negative); Leukocyte Esterase,Urine Trace (Negative); Mucus,Urine Few /hpf; Nitrite,Urine Negative (Negative); Protein,Urine 3+ (Negative); RBC,Urine >182 /hpf (0-5); Specific Gravity,Urine 1.023 (1.001-1.035); Squamous Epithelial Cell,Urine 5 /hpf (0-4); Urobilinogen,Urine <2.0 mg/dL (<2.0); WBC,Urine 7 /hpf (0-5)
[2019-07-22] MEDS ORDERED: TAMSULOSIN 0.4 MG CAP.ER.24H PO STA (18:42)
[2019-07-22 19:02] VITALS: BP 111/66; PULSE 81; RESP 16
== END 2019-07-22 19:09 | disposition home or self-care (01) ==
LOC: EC 17:00
DX: R31.9 Hematuria, unspecified (principal); R10.9 Unspecified abdominal pain; R11.0 Nausea; D72.829 Elevated white blood cell count, unspecified; E11.9 Type 2 diabetes mellitus without complications; I10 Essential (primary) hypertension; E78.5 Hyperlipidemia, unspecified; F17.200 Nicotine dependence, unspecified, uncomplicated; Z79.4 Long term (current) use of insulin; Z79.01 Long term (current) use of anticoagulants; Z79.899 Other long term (current) drug therapy; Z89.432 Acquired absence of left foot; Z86.718 Personal history of other venous thrombosis and embolism
CPT/HCPCS: 36415; 93005; 80053; 82150; 83690; 84484; 85025; 81001; 87086; 74018; 99284; 96374; 96375 ×2; 96361; J2405; J1885; J1170

== ENCOUNTER 2019-07-28 16:31 | Emergency (ER) | payer BC ==
[2019-07-28 16:36] VITALS: BP 101/64; PULSE 93; RESP 20; TEMP 99.3
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
== END 2019-07-28 17:42 | disposition home or self-care (01) ==
LOC: EC 16:31
DX: G51.0 Bell's palsy (principal); E11.9 Type 2 diabetes mellitus without complications; M79.7 Fibromyalgia; E78.5 Hyperlipidemia, unspecified; I10 Essential (primary) hypertension; M19.90 Unspecified osteoarthritis, unspecified site; F32.9 Major depressive disorder, single episode, unspecified; F17.200 Nicotine dependence, unspecified, uncomplicated; Z79.01 Long term (current) use of anticoagulants; Z79.891 Long term (current) use of opiate analgesic; Z79.4 Long term (current) use of insulin; Z79.899 Other long term (current) drug therapy; Z86.718 Personal history of other venous thrombosis and embolism; Z89.431 Acquired absence of right foot; Z89.432 Acquired absence of left foot
CPT/HCPCS: 99284

== ENCOUNTER 2020-02-29 09:04 | Emergency (ER) | payer BC ==
[2020-02-29 09:11] VITALS: TEMP 98.7
[2020-02-29 09:57] LABS: INR 2.4 (<1.2); Prothrombin Time 23.6 sec (9.0-12.0)
--- NOTE | 2020-02-29 10:25 | XR ---
Right ankle HISTORY: Trauma and pain 3 views the right ankle Patient shows post amputation changes involving anterior aspect of the talus, mid and forefoot. Bone mineralization is reduced. There is mild soft tissue swelling. IMPRESSION: Postop changes. No acute fracture or dislocation.
[2020-02-29] MEDS ORDERED: MORPHINE SULFATE 2 MG/ML SYRINGE IVP STA (10:36)
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
[2020-02-29] MEDS ORDERED: CEPHALEXIN 500MG STARTER PACK 4 CAP BTL PO STA (10:43)
[2020-02-29 10:52] VITALS: BP 135/81; PULSE 78; RESP 18
== END 2020-02-29 10:47 | disposition home or self-care (01) ==
LOC: EC 09:04
DX: M79.671 Pain in right foot (principal); R22.41 Localized swelling, mass and lump, right lower limb; F32.9 Major depressive disorder, single episode, unspecified; M79.7 Fibromyalgia; E11.9 Type 2 diabetes mellitus without complications; E78.5 Hyperlipidemia, unspecified; I10 Essential (primary) hypertension; M19.90 Unspecified osteoarthritis, unspecified site; Z79.4 Long term (current) use of insulin; Z79.01 Long term (current) use of anticoagulants; Z79.1 Long term (current) use of non-steroidal anti-inflammatories (NSAID); Z79.899 Other long term (current) drug therapy; Z86.718 Personal history of other venous thrombosis and embolism; Z87.891 Personal history of nicotine dependence; Z90.710 Acquired absence of both cervix and uterus; Z89.432 Acquired absence of left foot; W06.XXXA Fall from bed, initial encounter; Y92.003 Bedroom of unspecified non-institutional (private) residence as the place of occurrence of the external cause
CPT/HCPCS: 36415; 85610; 73610; 99283; 96374; J2270

== ENCOUNTER → 2021-11-17 | Outpatient (CLI) | payer BC ==
--- NOTE | 2021-11-17 14:49 | US ---
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 Doppler Waveforms: Right: Multiphasic Left: Multiphasic Ankle-Brachial Indices: Right: 0.78 Left: 1.05 IMPRESSION: Mild to moderate atherosclerotic disease of the right lower extremity correlate clinical ly.
== END | disposition home or self-care (01) ==
LOC: RADUSWWP 12:04
PROVIDERS: ATTEND Surgery Vascular Surgery
DX: I70.201 Unspecified atherosclerosis of native arteries of extremities, right leg (principal)
CPT/HCPCS: 93923

== ENCOUNTER → 2022-07-10 | Outpatient (CLI) | payer BC | END | disposition home or self-care (01) | LOC: LABMAIN 16:59 | PROVIDERS: ATTEND Family Medicine | DX: Z53.9 Procedure and treatment not carried out, unspecified reason (principal) ==

== ENCOUNTER 2022-07-11 12:32 | Inpatient (IN) | payer BC ==
[2022-07-11] MEDS ORDERED: SODIUM CHLORIDE 0.9% 1,000 ML IV STA (13:15)
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
[2022-07-11 13:34] LABS: Basophils % (A) 0 %; Eosinophils % (A) 0 %; HCT 40.6 % (34.0-46.0); Lymphocytes # (A) 1.7 k/uL (1.0-4.8); Lymphocytes % (A) 8 %; MCH 30.5 pg (25.0-35.0); MCHC 32.1 g/dL (31.0-37.0); MCV 95.1 fL (80.0-100.0); Mean Platelet Volume 8.9; Monocytes # (A) 0.8 k/uL (0-1.0); Monocytes % (A) 4 %; Neutrophils % (A) 86 %; Platelet Count 291 k/uL (150-450); RBC 4.27 m/uL (3.80-5.40); RDW 12.8 % (11.5-15.5); WBC 20.9 k/uL (3.8-10.6)
[2022-07-11 14:14] LABS: INR 1.7 (<1.2)
[2022-07-11] MEDS ORDERED: SODIUM CHLORIDE 0.9% 1,000 ML IV ONE ×2 (14:17→20:13)
[2022-07-11] MEDS ORDERED: PIPERACILLIN-TAZOBACTAM 3.375 GM in SODIUM CHLORIDE 0.9% 100 ML IVPB STA (14:49)
--- NOTE | 2022-07-11 14:55 | CT ---
EXAMINATION TYPE: CT abdomen pelvis wo con DATE OF EXAM: 07/11/2022 COMPARISON: 04/05/2019 INDICATION: Bilateral lower quadrant abdominal pain DLP: 1174.7 mGycm, Automated exposure control for dose reduction was used. CONTRAST: 0 mL of Isovue 300. Study performed without Oral Contrast TECHNIQUE: Axial images were obtained from above the diaphragm to the pubic rami in the axial plane a t 5 mm thick sections. Reconstructed images are reviewed on the computer in the coronal plane. FINDINGS: Limited CT sections are obtained the lung bases. The lung bases are clear. CT ABDOMEN: Liver: Normal Spleen: Normal Pancreas: Normal Adrenal glands: The adrenal glands are normal. Gallbladder: Normal Kidneys: No masses are evident. No hydronephrosis is present. There is a 2.7 cm cyst posterior mid left kidney. Nonobstructing 0.5 cm mid left hilar renal stone or vascular calcification. Aorta: Vascular calcification is within the aorta. Aortic stent appears to be present extending into the iliac vessels. No obvious stenosis is evident. Inferior vena cava: Normal. CT PELVIS: Loops of bowel without oral contrast. Unremarkable. No dilated loops of bowel are evident. There are inflammatory changes within the mid pelvis. This may be related to the appendix which would measure 1 .5 cm which is dilated. Inflammatory changes are evident. Acute appendicitis should be considered. We ll-formed abscess not clearly identified. Urinary bladder: Normal. Genitourinary structures: Uterus and ovaries are not identified which may be compatible with patient' s surgical history. Osseous structures: No suspicious lytic or sclerotic lesions. IMPRESSIONS: 1. Right lower quadrant and mid pelvic inflammatory changes adjacent to a dilated tubular structure measuring 1.5 cm. Findings appear suggestive for acute appendicitis. Phlegmon may be present in the r ight hemipelvis. Report discussed with the emergency room physician by Dr. Suarez by telephone at 14 51 hours 07/11/2022.
[2022-07-11 15:03] LABS: Albumin 2.9 g/dL (3.5-5.0); Potassium 3.9 mmol/L (3.5-5.1); Total Bilirubin 0.4 mg/dL (0.2-1.3); Total Protein 5.4 g/dL (6.3-8.2)
[2022-07-11] MEDS ORDERED: ACETAMINOPHEN TAB 325 MG TAB PO PRN (15:03)
[2022-07-11] MEDS ORDERED: NALOXONE 0.4 MG/ML 1 ML VIAL IV PRN (15:03)
[2022-07-11] MEDS ORDERED: fentaNYL (PF) 50 MCG/ML 2 ML AMP IVP STA (15:06)
[2022-07-11] MEDS: SODIUM CHLORIDE 0.9% 1,000 ML IV SCH ×2 (15:11→21:41)
[2022-07-11 15:32] LABS: Appearance,Urine Cloudy (Clear); Bacteria,Urine Rare /hpf; Bilirubin,Urine Negative (Negative); Blood,Urine Trace (Negative); Color,Urine Yellow; Glucose,Urine (UA) 2+ (Negative); Hyaline Casts,Urine 3 /lpf (0-2); Ketones,Urine Negative (Negative); Leukocyte Esterase,Urine Negative (Negative); Mucus,Urine Rare /hpf; Nitrite,Urine Negative (Negative); PH, Urine 5.5 (5.0-8.0); Protein,Urine 2+ (Negative); RBC,Urine 2 /hpf (0-5); Specific Gravity,Urine 1.015 (1.001-1.035); Squamous Epithelial Cell,Urine 4 /hpf (0-4); Urobilinogen,Urine <2.0 mg/dL (<2.0); WBC,Urine 5 /hpf (0-5)
[2022-07-11] MEDS: HYDROmorphone 0.5 MG/0.5 ML SYRINGE IVP PRN ×2 (18:01→21:38)
[2022-07-11] MEDS: PIPERACILLIN-TAZOBACTAM 3.375 GM in SODIUM CHLORIDE 0.9% 100 ML IVPB SCH (20:20)
[2022-07-11 20:38] LABS: Glucose,Whole Blood 213 mg/dL (70-110)
[2022-07-11] MEDS: tiZANidine 4 MG TAB PO SCH (21:38)
[2022-07-11] MEDS: PRAVASTATIN SODIUM 20 MG TAB PO SCH (21:38)
[2022-07-11] MEDS: TOPIRAMATE 25 MG TAB PO SCH (21:38)
[2022-07-11] MEDS: INSULIN ASPART (NovoLOG) 100 UNIT/ML VIAL SQ SCH (21:45)
[2022-07-12] MEDS ORDERED: SODIUM CHLORIDE 0.9% 1,000 ML IV ONE (02:03)
[2022-07-12] MEDS: HYDROcodone/APAP 5-325MG 1 EACH TAB PO PRN (03:19)
[2022-07-12] MEDS: PIPERACILLIN-TAZOBACTAM 3.375 GM in SODIUM CHLORIDE 0.9% 100 ML IVPB SCH ×2 (03:50→11:41)
[2022-07-12 06:10] LABS: Glucose,Whole Blood 209 mg/dL (70-110)
[2022-07-12] MEDS: INSULIN ASPART (NovoLOG) 100 UNIT/ML VIAL SQ SCH ×3 (06:38→16:13)
[2022-07-12] MEDS: SODIUM CHLORIDE 0.9% 1,000 ML IV SCH ×2 (06:39→11:42)
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
[2022-07-12] MEDS: HYDROmorphone 0.5 MG/0.5 ML SYRINGE IVP PRN ×2 (08:20→11:41)
[2022-07-12] MEDS: MORPHINE SULFATE ER 15 MG TABLET PO SCH ×2 (08:20→15:46)
[2022-07-12] MEDS: tiZANidine 4 MG TAB PO SCH ×2 (08:21→15:46)
[2022-07-12 10:03] LABS: Basophils # (A) 0.04 X 10*3/uL (0.00-0.10); Basophils % (A) 0.3 %; Eosinophils # (A) 0.08 X 10*3/uL (0.04-0.35); Eosinophils % (A) 0.5 %; HCT 35.4 % (37.2-46.3); Immature Grans, Automated 0.7 %; Lymphocytes # (A) 2.16 X 10*3/uL (0.90-5.00); Lymphocytes % (A) 14.1 %; MCH 30.3 pg (27.0-32.0); MCHC 31.1 g/dL (32.0-37.0); MCV 97.5 fL (80.0-97.0); Monocytes % (A) 5.2 %; NRBC Per 100 WBC 0 /100 WBCS (0.0-0.0); Neutrophils % (A) 79.2 %; Platelet Count 220 X 10*3/uL (140-440); RBC 3.63 X 10*6/uL (4.10-5.20); RDW 12.9 % (11.5-14.5); WBC 15.28 X 10*3/uL (4.50-10.00)
[2022-07-12 10:19] LABS: INR 1.6 (<1.2); Prothrombin Time 15.6 sec (9.0-12.0)
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
[2022-07-12 11:19] LABS: Glucose,Whole Blood 194 mg/dL (70-110)
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
[2022-07-12] MEDS: PANTOPRAZOLE 40 MG/10 ML VIAL IVP SCH (14:23)
--- NOTE | 2022-07-12 15:28 | P.PN ---
Subjective Progress Note Date: 07/12/22 Principal diagnosis: Sepsis/appendicitis Patient is a 56-year-old female with a past medical history significant for diabetes mellitus hypertension hyperlipidemia DVT renal disease presenting to the hospital for evaluation of lower abdominal pain , patient did have CT abdominal palate that was suspicious for appendicitis On today's evaluation head that is 07/12/2022, the patient denies having any fever or any chills, the patient abdominal pain has slightly decreased in intensity, patient denies having any chest pain or shortness of breath or cough no nausea vomiting and no diarrhea Objective - Vital Signs Vital signs: Vital Signs Temp 98.1 F 07/12/22 10:26 Pulse 65 07/12/22 10:26 Resp 16 07/12/22 10:26 BP 142/82 07/12/22 10:26 Pulse Ox 98 07/12/22 10:26 FiO2 Intake & Output 07/11/22 07/12/22 07/12/22 18:59 06:59 18:59 Intake Total 3140 Balance 3140 Weight 106.594 kg Intake: Intake, IV Titration 3140 Amount Piperacillin-Tazobactam 3 100 .375 gm In Sodium Chloride 0.9% 100 ml @ 25 mls/hr IVPB Q8H [facility] Rx#: [id number] Sodium Chloride 0.9% 1, 1040 000 ml @ 130 mls/hr IV . Q7H42M [facility] Rx#:[id number] Sodium Chloride 0.9% 1, 1000 000 ml @ 999 mls/hr IV . Q1H1M [facility] Rx#:[id number] Sodium Chloride 0.9% 1, 1000 000 ml @ 999 mls/hr IV . Q1H1M [facility] Rx#:[id number] Other: Voiding Method Toilet # Voids 1 # Bowel Movements 1 - Exam GENERAL DESCRIPTION: Middle-age female lying in bed in no distress RESPIRATORY SYSTEM: Unlabored breathing , decreased breath sounds at bases HEART: S1 S2 regular rate and rhythm , ABDOMEN: Soft , mild tenderness EXTREMITIES: No edema feet - Labs CBC & Chem 7: 07/12/22 04:16 07/11/22 14:07 Labs: Abnormal Lab Results - Last 24 Hours (Table) 07/11/22 07/11/22 07/11/22 Range/Units 13:19 13:20 13:20 WBC 20.9 H (3.8-10.6) k/uL RBC (4.10-5.20) X 10*6/uL Hgb (12.0-15.0) g/dL Hct (37.2-46.3) % MCV (80.0-97.0) fL MCHC (32.0-37.0) g/dL Immature Gran # (0.00-0.04) X 10*3/uL Neutrophils # 18.0 H (1.3-7.7) k/uL PT 17.0 H (9.0-12.0) sec INR 1.7 H (<1.2) APTT 35.0 H (22.0-30.0) sec Sodium (137-145) mmol/L Carbon Dioxide (22-30) mmol/L BUN (7-17) mg/dL Creatinine (0.52-1.04) mg/dL Glucose (74-99) mg/dL POC Glucose (mg/dL) (70-110) mg/dL Calcium (8.4-10.2) mg/dL Total Protein (6.3-8.2) g/dL Albumin (3.5-5.0) g/dL Lipase (23-300) U/L Urine Appearance Cloudy H (Clear) Urine Protein 2+ H (Negative) Urine Glucose (UA) 2+ H (Negative) Urine Blood Trace H (Negative) Urine Bacteria Rare H (None) /hpf Hyaline Casts 3 H (0-2) /lpf Urine Mucus Rare H (None) /hpf 07/11/22 07/11/22 07/12/22 Range/Units 14:07 20:37 04:16 WBC 15.28 H (3.8-10.6) k/uL RBC 3.63 L (4.10-5.20) X 10*6/uL Hgb 11.0 L (12.0-15.0) g/dL Hct 35.4 L (37.2-46.3) % MCV 97.5 H (80.0-97.0) fL MCHC 31.1 L (32.0-37.0) g/dL Immature Gran # 0.10 H (0.00-0.04) X 10*3/uL Neutrophils # 12.10 H (1.3-7.7) k/uL PT (9.0-12.0) sec INR (<1.2) APTT (22.0-30.0) sec Sodium 133 L (137-145) mmol/L Carbon Dioxide 21 L (22-30) mmol/L BUN 25 H (7-17) mg/dL Creatinine 1.44 H (0.52-1.04) mg/dL Glucose 310 H (74-99) mg/dL POC Glucose (mg/dL) 213 H (70-110) mg/dL Calcium 8.0 L (8.4-10.2) mg/dL Total Protein 5.4 L (6.3-8.2) g/dL Albumin 2.9 L (3.5-5.0) g/dL Lipase 20 L (23-300) U/L Urine Appearance (Clear) Urine Protein (Negative) Urine Glucose (UA) (Negative) Urine Blood (Negative) Urine Bacteria (None) /hpf Hyaline Casts (0-2) /lpf Urine Mucus (None) /hpf 07/12/22 07/12/22 07/12/22 Range/Units 06:09 09:51 11:17 WBC (3.8-10.6) k/uL RBC (4.10-5.20) X 10*6/uL Hgb (12.0-15.0) g/dL Hct (37.2-46.3) % MCV (80.0-97.0) fL MCHC (32.0-37.0) g/dL Immature Gran # (0.00-0.04) X 10*3/uL Neutrophils # (1.3-7.7) k/uL PT 15.6 H (9.0-12.0) sec INR 1.6 H (<1.2) APTT (22.0-30.0) sec Sodium (137-145) mmol/L Carbon Dioxide (22-30) mmol/L BUN (7-17) mg/dL Creatinine (0.52-1.04) mg/dL Glucose (74-99) mg/dL POC Glucose (mg/dL) 209 H 194 H (70-110) mg/dL Calcium (8.4-10.2) mg/dL Total Protein (6.3-8.2) g/dL Albumin (3.5-5.0) g/dL Lipase (23-300) U/L Urine Appearance (Clear) Urine Protein (Negative) Urine Glucose (UA) (Negative) Urine Blood (Negative) Urine Bacteria (None) /hpf Hyaline Casts (0-2) /lpf Urine Mucus (None) /hpf Assessment and Plan (1) Acute appendicitis Current Visit: No Status: Acute Code(s): K35.80 - UNSPECIFIED ACUTE APPENDICITIS SNOMED Code(s): 02685855 (2) Sepsis Current Visit: No Status: Acute Code(s): A41.9 - SEPSIS, UNSPECIFIED [facility] SNOMED Code(s): 16596252 Plan: 1patient was in the hospital with sepsis in this patient with elevated white count hypotension abdominal pain, source is likely acute appendicitis with abnormal CT and we will need to cover for the enteric gram-negative both anaerobes and anaerobes 2-patient to continue with the Zosyn 3.375 g every 8 hours, patient is currently waiting for appendectomy along with abdominal cultures if any evidence of ab scess Family the bedside, Questions concerns answered in layman term Time with Patient: Less than 30
[2022-07-12 16:06] LABS: Glucose,Whole Blood 150 mg/dL (70-110)
[2022-07-12] MEDS ORDERED: GLYCOPYRROLATE 0.2 MG/ML 2 ML VIAL ONE (19:07)
[2022-07-12] MEDS ORDERED: fentaNYL (PF) 50 MCG/ML 2 ML AMP ONE (19:07)
[2022-07-12] MEDS ORDERED: KETOROLAC 15 MG/ML 1 ML VIAL ONE (19:07)
[2022-07-12] MEDS ORDERED: SUCCINYLCHOLINE CHLORIDE 200 MG/10 ML VIAL IV ONE (19:07)
[2022-07-12] MEDS ORDERED: ROCURONIUM 10 MG/ML (5 ML VIAL) IV ONE (19:07)
[2022-07-12] MEDS ORDERED: NALOXONE 0.4 MG/ML 1 ML VIAL ONE (19:07)
[2022-07-12] MEDS ORDERED: NEOSTIGMINE 1 MG/ML 10 ML VIAL ONE (19:07)
[2022-07-12] MEDS ORDERED: HYDROmorphone (PF) 1 MG/ML ONE (19:07)
[2022-07-12] MEDS ORDERED: PROPOFOL 10 MG/ML 20 ML VIAL IV ONE (19:07)
[2022-07-12] MEDS ORDERED: SUGAMMADEX SODIUM 200 MG/2 ML SDV IV ONE ×2 (19:07→21:25)
[2022-07-12] MEDS ORDERED: MIDAZOLAM 2 MG/2 ML VIAL ONE (19:07)
[2022-07-12] MEDS ORDERED: LIDOCAINE 2% INJ 20 MG/ML (2 ML VIAL) ONE (19:07)
[2022-07-12] MEDS ORDERED: BUPIVACAINE (PF) 0.25% 30 ML VIAL SQ ONE ×2 (19:10→19:32)
[2022-07-12] MEDS ORDERED: LACTATED RINGERS 1,000 ML IV ONE ×3 (19:11→21:23)
[2022-07-12] MEDS ORDERED: ALBUTEROL NEBULIZED 2.5 MG/3 ML INHALATION ONE ×2 (21:30→21:47)
[2022-07-12 21:31] LABS: Glucose,Whole Blood 252 mg/dL (70-110)
[2022-07-12] MEDS ORDERED: HYDROmorphone 0.5 MG/0.5 ML SYRINGE IVP ONE ×2 (21:55→22:22)
--- NOTE | 2022-07-12 21:56 | P.OP ---
Date of Procedure: 07/12/22 Description of Procedure: SURGEON: IVETTE LOVELACE MD Preoperative Diagnosis: 1. Appendicitis with sepsis 2. Diabetes type 2, insulin-dependent 3. Diabetic neuropathy 4. Hypertensive heart disease 5. Morbid obesity due to excess calories, BMI 37.9 6. Hyperlipidemia 7. Iron deficiency anemia 8. Bilateral partial foot amputation 9. Fibromyalgia 10. Diabetic nephropathy, stage III 11. Past history of deep venous 12. Left eye enucleation 13. Depressive disorder Postoperative Diagnosis: 1. Sepsis from ruptured appendicitis with appendiceal and peritoneal abscess 2. Diabetes type 2, insulin-dependent 3. Diabetic neuropathy 4. Hypertensive heart disease 5. Morbid obesity due to excess calories, BMI 37.9 6. Hyperlipidemia 7. Iron deficiency anemia 8. Bilateral partial foot amputation 9. Fibromyalgia 10. Diabetic nephropathy, stage III 11. Past history of deep venous 12. Left eye enucleation 13. Depressive disorder 14. Peritoneal adhesions, pelvis Procedure(s) Performed: 1. Robotic-assisted daVinci Xi laparoscopic lysis of adhesions over 1 hr 2. Robotic-assisted daVinci Xi laparoscopic drainage of periappendiceal abscess and pelvic 3. Placement of JOAN drain #19 left lower quadrant/pelvis 4. Peritoneal lavage 1000 mL normal saline Anesthesia: GETA local Estimated Blood Loss (ml): 10 Pathology: other (appendix, aerobic and anerobic culture of peritoneal fluid from peritonitis) Condition: Guarded Disposition: floor Operative Findings: 1. Localized abscess over 30-mL drained pelvis 2. Ruptured appendicitis with phlegmon 3. Abdomen irrigated with 1000-mL normal saline 4. JOAN drain placed at left lower quadrant of peritoneal/pelvic abscess drained 5. [place] dense adhesions involving terminal ileum obscuring visualization of the appendix with phlegmon prohibiting safe resection of appendix INDICATIONS: The patient is a 56-year-old female who presents with acute appendicitis including fevers and peritonitis consistent with sepsis. Emergent surgical intervention was described in detail. Patient requested robotic- assisted technique. Benefits and risks, including infection, open surgery, and possibility for additional surgery was discussed at length. Informed consent was obtained. All questions of the patient and family were answered. DESCRIPTION: The patient was transferred to the operating room and placed in supine position. The abdomen was then prepped and draped in standard sterile fashion as Ioban was placed along the abdomen to minimize any contamination of skin floor. After a timeout protocol was performed, attention was then brought to the left upper quadrant whereby a 0 degree 5 mm laparoscopic trocar entry was performed. The abdominal cavity was entered and insufflated to 15 mmHg pressure, which was tolerated well. Diagnostic laparoscopy demonstrated no injury to bowel, viscera or mesentery. Next a robotic 12-mm trocar was placed along the left upper quadrant after exchanging the 5 mm trocar. A 8 mm port was placed along the left lower quadrant and another 8-mm port left lateral abdominal wall. Ports were placed 10 cm apart from each other including 15-20 cm away from the target anatomy of the right pelvis. The patient was then placed in Trendelenburg position, at least 7 and right side up at least 7. The robotic da Fred XI system was primed and docked from the left side of the patient. Using atraumatic graspers and vessel sealer, the robotic system was docked and primed as described. Instruments were interchanged by the commercial lending assistant including graspers, robotic stapler and vessel sealer. Next, attention was brought to identify the cecum. Adhesions were confirmed of the lower midline from prior surgery. Phlegmon involving the terminal ileum, appendix was found of dense and hard adhesions prohibiting visualization of the appendix. Localized abscess was found over 30 mL evacuated. The base of the cecum was without inflammation and ischemia. Extensive lysis of adhesions over 30 minutes was performed to address pre-existing lower midline adhesions including adhesions of the right lower quadrant. With the dense and firm adhesions prohibiting safety and resection of the appendix including surrounding tissue, drainage with interval appendectomy was selected. The abdomen was irrigated with 1000 mL normal saline to the aspirant was clear. The robot was undocked. I re-scrubbed into the case. A round #19 drain was placed via the left lower quadrant port and positioned at the right lower quadrant and pelvis. A drain stitch 2-0 nylon was placed with the bulb attached separately. All instruments and pneumoperitoneum were evacuated from the abdominal cavity. Local anesthetic was infiltrated to all wounds for postop analgesia. All incisions were also cleansed with diluted hydrogen peroxide. An Optifoam surgical dressing was placed over all port sites including drain site as she has elevated risk for infection. The patient had tolerated the procedure well. The patient was transferred to the postanesthesia care unit in guarded condition.
[2022-07-12 22:34] LABS: Glucose,Whole Blood 287 mg/dL (70-110)
[2022-07-12] MEDS ORDERED: INSULIN ASPART (NovoLOG) 100 UNIT/ML VIAL SQ ONE (22:45)
[2022-07-12] MEDS ORDERED: ONDANSETRON 4 MG/2 ML VIAL IVP PRN (22:48)
[2022-07-13] MEDS ORDERED: ACETAMINOPHEN IV (For NPO) 1,000 MG in EMPTY BAG 1 BAG IVPB ONE
[2022-07-13] MEDS: INSULIN ASPART (NovoLOG) 100 UNIT/ML VIAL SQ SCH ×5 (00:17→21:25)
[2022-07-13] MEDS: tiZANidine 4 MG TAB PO SCH ×4 (00:18→21:26)
[2022-07-13] MEDS: TOPIRAMATE 25 MG TAB PO SCH ×2 (00:19→21:25)
[2022-07-13] MEDS: PRAVASTATIN SODIUM 20 MG TAB PO SCH ×2 (00:19→21:25)
[2022-07-13] MEDS: SODIUM CHLORIDE 0.9% 1,000 ML IV SCH ×4 (00:20→23:27)
[2022-07-13] MEDS: ACETAMINOPHEN TAB 500 MG TAB PO SCH ×4 (00:24→17:39)
[2022-07-13] MEDS: PIPERACILLIN-TAZOBACTAM 3.375 GM in SODIUM CHLORIDE 0.9% 100 ML IVPB SCH ×4 (00:28→21:25)
[2022-07-13] MEDS: HYDROmorphone 0.5 MG/0.5 ML SYRINGE IVP PRN ×6 (00:29→21:22)
[2022-07-13 06:12] LABS: Glucose,Whole Blood 149 mg/dL (70-110)
[2022-07-13] MEDS: MORPHINE SULFATE ER 15 MG TABLET PO SCH ×2 (06:24→17:39)
[2022-07-13] MEDS: PANTOPRAZOLE 40 MG/10 ML VIAL IVP SCH (08:22)
[2022-07-13] MEDS: ENOXAPARIN 40 MG/0.4 ML SYRINGE SQ SCH (08:22)
[2022-07-13 11:08] LABS: Basophils # (A) 0.04 X 10*3/uL (0.00-0.10); Basophils % (A) 0.3 %; Eosinophils # (A) 0.06 X 10*3/uL (0.04-0.35); Eosinophils % (A) 0.4 %; HCT 36.5 % (37.2-46.3); HGB 11.3 g/dL (12.0-15.0); Immature Grans, Automated 0.4 %; Lymphocytes # (A) 2.05 X 10*3/uL (0.90-5.00); Lymphocytes % (A) 14.2 %; MCH 30.2 pg (27.0-32.0); MCV 97.6 fL (80.0-97.0); Mean Platelet Volume 11.6 fL (9.5-12.2); Monocytes # (A) 0.66 X 10*3/uL (0.20-1.00); Monocytes % (A) 4.6 %; NRBC Per 100 WBC 0 /100 WBCS (0.0-0.0); Neutrophils # (A) 11.52 X 10*3/uL (1.80-7.70); Neutrophils % (A) 80.1 %; Platelet Count 262 X 10*3/uL (140-440); RBC 3.74 X 10*6/uL (4.10-5.20); WBC 14.39 X 10*3/uL (4.50-10.00)
[2022-07-13 11:37] LABS: African American GFR (CKD) 69.1 (60.0-200.0); BUN/Creat Ratio 17.12 Ratio (12.00-20.00); Blood Urea Nitrogen 17.8 mg/dL (9.0-27.0); Calcium 8.5 mg/dL (8.7-10.3); Non-African American GFR(CKD) 59.6 (60.0-200.0); Potassium 3.6 mmol/L (3.5-5.5)
[2022-07-13 12:18] LABS: Glucose,Whole Blood 247 mg/dL (70-110)
[2022-07-13 13:16] LABS: INR 1.5 (<1.2); Prothrombin Time 14.7 sec (9.0-12.0)
[2022-07-13] MEDS ORDERED: LIDOCAINE 1% INJ 10MG/ML (5 ML VIAL-PF) SQ ONE (13:51)
--- NOTE | 2022-07-13 14:26 | IR ---
PICC LINE PLACEMENT: HISTORY: Infection requiring long-term antibiotic therapy PROCEDURE: Ultrasound and fluoroscopic guidance of PICC line placement. COMPLICATIONS: None ANESTHESIA: 1. 1% Lidocaine locally. FINDINGS/TECHNIQUE: The procedure was explained to the patient. The risks, complications, benefits and alternatives were discussed and any questions were answered. Informed consent was obtained. The patient was placed supine on the fluoroscopic table and prepped and draped in the usual sterile fash ion. Utilizing a 21 gauge needle and sonographic and fluoroscopic guidance, access in the left basi lic vein was achieved and there is placement of a 0.018 guidewire. The vein is patent. A 4-F sheath was placed over the guidewire. The guidewire and dilator were removed and a 4-F. PICC line was plac ed through the sheath with the tip at the level of the SVC. The sheath was removed, the catheter was flushed and sutured into position. The patient was stable throughout the procedure and remained sta ble upon discharge from the Department of Radiology. The vein puncture was patent under ultrasound. A gonzales scale image was obtained to document patency of the vein punctured. All elements of the maximal barrier technique were utilized. FLUOROSCOPY TIME: DAP 0.98896Dd cm2 IMPRESSION: Successful PICC line placement under ultrasound and fluoroscopic guidance.
--- NOTE | 2022-07-13 14:55 | P.PN ---
Subjective Progress Note Date: 07/13/22 Principal diagnosis: Sepsis/appendicitis Patient is a 56-year-old female with a past medical history significant for diabetes mellitus hypertension hyperlipidemia DVT renal disease presenting to the hospital for evaluation of lower abdominal pain , patient did have CT abdominal palate that was suspicious for appendicitis, patient is status post laparoscopic lysis of adhesion and drainage of the abscess On today's evaluation head that is 07/13/2022, the patient remains to be afebrile, the patient abdominal pain is currently controlled, patient denies having any chest pain or shortness of breath or cough no nausea vomiting and no diarrhea Objective - Vital Signs Vital signs: Vital Signs Temp 97.7 F 07/13/22 07:19 Pulse 63 07/13/22 07:19 Resp 17 07/13/22 07:19 BP 151/84 07/13/22 07:19 Pulse Ox 100 07/13/22 07:19 FiO2 Intake & Output 07/12/22 07/13/22 07/13/22 18:59 06:59 18:59 Intake Total 3140 2380 Output Total 85 Balance 3140 2295 Weight 106.594 kg Intake: IV 1300 Intake, IV Titration 3140 1080 Amount ACETAMINOPHEN IV (For NPO 100 ) 1,000 mg In Empty Bag 1 bag @ 400 mls/hr IVPB ONCE ONE Rx#:[id number] Piperacillin-Tazobactam 3 100 100 .375 gm In Sodium Chloride 0.9% 100 ml @ 25 mls/hr IVPB Q8H [facility] Rx#: [id number] Sodium Chloride 0.9% 1, 1040 880 000 ml @ 130 mls/hr IV . Q7H42M [facility] Rx#:[id number] Sodium Chloride 0.9% 1, 1000 000 ml @ 999 mls/hr IV . Q1H1M [facility] Rx#:[id number] Sodium Chloride 0.9% 1, 1000 000 ml @ 999 mls/hr IV . Q1H1M [facility] Rx#:[id number] Output: Drainage 80 Left 80 Estimated Blood Loss 5 Other: # Voids 3 # Bowel Movements 1 - Exam GENERAL DESCRIPTION: Middle-age female lying in bed in no distress RESPIRATORY SYSTEM: Unlabored breathing , decreased breath sounds at bases HEART: S1 S2 regular rate and rhythm , ABDOMEN: Soft , mild tenderness EXTREMITIES: No edema feet - Labs CBC & Chem 7: 07/13/22 07:46 07/13/22 07:46 Labs: Abnormal Lab Results - Last 24 Hours (Table) 07/12/22 07/12/22 07/12/22 Range/Units 16:05 21:19 22:32 WBC (4.50-10.00) X 10*3/uL RBC (4.10-5.20) X 10*6/uL Hgb (12.0-15.0) g/dL Hct (37.2-46.3) % MCV (80.0-97.0) fL MCHC (32.0-37.0) g/dL Immature Gran # (0.00-0.04) X 10*3/uL Neutrophils # (1.80-7.70) X 10*3/uL Est GFR (CKD-EPI)NonAf (60.0-200.0) Glucose (70-110) mg/dL POC Glucose (mg/dL) 150 H 252 H 287 H (70-110) mg/dL Calcium (8.7-10.3) mg/dL 07/13/22 07/13/22 07/13/22 Range/Units 06:10 07:46 07:46 WBC 14.39 H (4.50-10.00) X 10*3/uL RBC 3.74 L (4.10-5.20) X 10*6/uL Hgb 11.3 L (12.0-15.0) g/dL Hct 36.5 L (37.2-46.3) % MCV 97.6 H (80.0-97.0) fL MCHC 31.0 L (32.0-37.0) g/dL Immature Gran # 0.06 H (0.00-0.04) X 10*3/uL Neutrophils # 11.52 H (1.80-7.70) X 10*3/uL Est GFR (CKD-EPI)NonAf 59.6 L (60.0-200.0) Glucose 152 H (70-110) mg/dL POC Glucose (mg/dL) 149 H (70-110) mg/dL Calcium 8.5 L (8.7-10.3) mg/dL Microbiology - Last 24 Hours (Table) 07/11/22 13:05 Blood Culture - Preliminary Blood 07/11/22 13:20 Blood Culture - Preliminary Blood 07/12/22 20:36 Wound Culture - Preliminary Other - Other 07/12/22 20:36 Anaerobic Culture - Preliminary Peritoneal Fluid Assessment and Plan (1) Acute appendicitis Current Visit: No Status: Acute Code(s): K35.80 - UNSPECIFIED ACUTE APPENDICITIS SNOMED Code(s): 63051821 (2) Sepsis Current Visit: No Status: Acute Code(s): A41.9 - SEPSIS, UNSPECIFIED ORGANISM SNOMED Code(s): 15403554 Plan: 1patient was in the hospital with sepsis in this patient with elevated white count hypotension abdominal pain, source is likely acute appendicitis with abnormal CT and we will need to cover for the enteric gram-negative both anaerobes and anaerobes 2-patient was found to have a ruptured appendicitis with localized abscess status post laparoscopic lysis of adhesion and drainage of the abscess and plan for delayed appendectomy as per discussion with the surgeon, patient has been insisting on going home for the Mother's Day and do not want to wait for the cultures we will try to arrange for PICC line and outpatient IV Zosyn 2 weeks and close outpatient follow-up Time with Patient: Less than 30
[2022-07-13] MEDS: HYDROcodone/APAP 5-325MG 1 EACH TAB PO PRN ×2 (16:21→23:38)
[2022-07-13 16:42] LABS: Glucose,Whole Blood 204 mg/dL (70-110)
[2022-07-13 20:54] LABS: Glucose,Whole Blood 235 mg/dL (70-110)
--- NOTE | 2022-07-13 22:54 | P.PN ---
Subjective Progress Note Date: 07/13/22 Pt is s/p lysis and drainage of her phlegmon, vitals stable this morning, she has JOAN drain in place and feels abdominal pain is overall controlled. WBC 14k. Objective - Vital Signs Vital signs: Vital Signs Temp 97.5 F L 07/13/22 20:00 Pulse 65 07/13/22 20:00 Resp 16 07/13/22 20:00 BP 132/72 07/13/22 20:00 Pulse Ox 96 07/13/22 20:00 FiO2 Intake & Output 07/13/22 07/13/22 07/14/22 06:59 18:59 06:59 Intake Total 2380 100 Output Total 85 30 Balance 2295 70 Weight 106.594 kg Intake: IV 1300 Intake, IV Titration 1080 100 Amount ACETAMINOPHEN IV (For NPO 100 ) 1,000 mg In Empty Bag 1 bag @ 400 mls/hr IVPB ONCE [facility] Rx#:[id number] Piperacillin-Tazobactam 3 100 100 .375 gm In Sodium Chloride 0.9% 100 ml @ 25 mls/hr IVPB Q8H [facility] Rx#: [id number] Sodium Chloride 0.9% 1, 880 000 ml @ 130 mls/hr IV . Q7H42M [facility] Rx#:[id number] Output: Drainage 80 30 Left 80 30 Estimated Blood Loss 5 Other: # Voids 3 # Bowel Movements 1 - Exam Gen: obese CV: RRR Lungs: CTAB Abd: soft. Tender to palpation - Labs CBC & Chem 7: 07/13/22 07:46 07/13/22 07:46 Labs: Abnormal Lab Results - Last 24 Hours (Table) 07/13/22 07/13/22 07/13/22 Range/Units 06:10 07:46 07:46 WBC 14.39 H (4.50-10.00) X 10*3/uL RBC 3.74 L (4.10-5.20) X 10*6/uL Hgb 11.3 L (12.0-15.0) g/dL Hct 36.5 L (37.2-46.3) % MCV 97.6 H (80.0-97.0) fL MCHC 31.0 L (32.0-37.0) g/dL Immature Gran # 0.06 H (0.00-0.04) X 10*3/uL Neutrophils # 11.52 H (1.80-7.70) X 10*3/uL PT (9.0-12.0) sec INR (<1.2) Est GFR (CKD-EPI)NonAf 59.6 L (60.0-200.0) Glucose 152 H (70-110) mg/dL POC Glucose (mg/dL) 149 H (70-110) mg/dL Calcium 8.5 L (8.7-10.3) mg/dL 07/13/22 07/13/22 07/13/22 Range/Units 12:11 12:24 16:40 WBC (4.50-10.00) X 10*3/uL RBC (4.10-5.20) X 10*6/uL Hgb (12.0-15.0) g/dL Hct (37.2-46.3) % MCV (80.0-97.0) fL MCHC (32.0-37.0) g/dL Immature Gran # (0.00-0.04) X 10*3/uL Neutrophils # (1.80-7.70) X 10*3/uL PT 14.7 H (9.0-12.0) sec INR 1.5 H (<1.2) Est GFR (CKD-EPI)NonAf (60.0-200.0) Glucose (70-110) mg/dL POC Glucose (mg/dL) 247 H 204 H (70-110) mg/dL Calcium (8.7-10.3) mg/dL 07/13/22 Range/Units 20:52 WBC (4.50-10.00) X 10*3/uL RBC (4.10-5.20) X 10*6/uL Hgb (12.0-15.0) g/dL Hct (37.2-46.3) % MCV (80.0-97.0) fL MCHC (32.0-37.0) g/dL Immature Gran # (0.00-0.04) X 10*3/uL Neutrophils # (1.80-7.70) X 10*3/uL PT (9.0-12.0) sec INR (<1.2) Est GFR (CKD-EPI)NonAf (60.0-200.0) Glucose (70-110) mg/dL POC Glucose (mg/dL) 235 H (70-110) mg/dL Calcium (8.7-10.3) mg/dL Microbiology - Last 24 Hours (Table) 07/12/22 20:36 Gram Stain - Preliminary Other - Other Wound Culture - Preliminary 07/11/22 13:05 Blood Culture - Preliminary Blood 07/11/22 13:20 Blood Culture - Preliminary Blood 07/12/22 20:36 Anaerobic Culture - Preliminary Peritoneal Fluid Assessment and Plan Plan: Continue with IV zosyn, IV fluids. Operative management per general surgery. Continue pain control and closely monitor
[2022-07-14] MEDS: ACETAMINOPHEN TAB 500 MG TAB PO SCH ×3 (00:05→12:26)
[2022-07-14] MEDS: PIPERACILLIN-TAZOBACTAM 3.375 GM in SODIUM CHLORIDE 0.9% 100 ML IVPB SCH ×2 (03:33→12:27)
[2022-07-14] MEDS: HYDROmorphone 0.5 MG/0.5 ML SYRINGE IVP PRN ×3 (03:38→12:27)
[2022-07-14 03:49] LABS: INR 1.28 (0.90-1.11); Prothrombin Time 14.3 sec (9.9-11.9)
[2022-07-14] MEDS: SODIUM CHLORIDE 0.9% 1,000 ML IV SCH (06:26)
[2022-07-14 06:30] LABS: Glucose,Whole Blood 190 mg/dL (70-110)
[2022-07-14] MEDS: MORPHINE SULFATE ER 15 MG TABLET PO SCH (06:45)
[2022-07-14] MEDS: INSULIN ASPART (NovoLOG) 100 UNIT/ML VIAL SQ SCH ×2 (06:45→12:27)
--- NOTE | 2022-07-14 07:18 | P.PN ---
Subjective Progress Note Date: 07/13/22 abdominal pain improved after lysis of adhesions and drainage of intra-abdominal abscess. JOAN serosanguineous. Findings of ruptured appendicitis noted phlegmon. Await cultures. Recommend PICC line Patient seen with infectious disease Interval appendectomy described. Objective - Vital Signs Vital signs: Vital Signs Temp 98.0 F 07/14/22 02:00 Pulse 71 07/14/22 02:00 Resp 17 07/14/22 02:00 BP 154/77 07/14/22 02:00 Pulse Ox 99 07/14/22 02:00 FiO2 Intake & Output 07/13/22 07/14/22 07/14/22 18:59 06:59 18:59 Intake Total 100 200 Output Total 30 65 Balance 70 135 Intake: Intake, IV Titration 100 200 Amount Piperacillin-Tazobactam 3 100 200 .375 gm In Sodium Chloride 0.9% 100 ml @ 25 mls/hr IVPB Q8H [facility] Rx#: [id number] Output: Drainage 30 65 Left 30 65 Other: # Voids 3 - Labs CBC & Chem 7: 07/13/22 07:46 07/13/22 07:46 Labs: Abnormal Lab Results - Last 24 Hours (Table) 07/13/22 07/13/22 07/13/22 Range/Units 07:46 07:46 07:46 WBC 14.39 H (4.50-10.00) X 10*3/uL RBC 3.74 L (4.10-5.20) X 10*6/uL Hgb 11.3 L (12.0-15.0) g/dL Hct 36.5 L (37.2-46.3) % MCV 97.6 H (80.0-97.0) fL MCHC 31.0 L (32.0-37.0) g/dL Immature Gran # 0.06 H (0.00-0.04) X 10*3/uL Neutrophils # 11.52 H (1.80-7.70) X 10*3/uL PT 14.3 H (9.9-11.9) sec INR 1.28 H (0.90-1.11) Est GFR (CKD-EPI)NonAf 59.6 L (60.0-200.0) Glucose 152 H (70-110) mg/dL POC Glucose (mg/dL) (70-110) mg/dL Calcium 8.5 L (8.7-10.3) mg/dL 07/13/22 07/13/22 07/13/22 Range/Units 12:11 12:24 16:40 WBC (4.50-10.00) X 10*3/uL RBC (4.10-5.20) X 10*6/uL Hgb (12.0-15.0) g/dL Hct (37.2-46.3) % MCV (80.0-97.0) fL MCHC (32.0-37.0) g/dL Immature Gran # (0.00-0.04) X 10*3/uL Neutrophils # (1.80-7.70) X 10*3/uL PT 14.7 H (9.9-11.9) sec INR 1.5 H (0.90-1.11) Est GFR (CKD-EPI)NonAf (60.0-200.0) Glucose (70-110) mg/dL POC Glucose (mg/dL) 247 H 204 H (70-110) mg/dL Calcium (8.7-10.3) mg/dL 07/13/22 07/14/22 Range/Units 20:52 06:29 WBC (4.50-10.00) X 10*3/uL RBC (4.10-5.20) X 10*6/uL Hgb (12.0-15.0) g/dL Hct (37.2-46.3) % MCV (80.0-97.0) fL MCHC (32.0-37.0) g/dL Immature Gran # (0.00-0.04) X 10*3/uL Neutrophils # (1.80-7.70) X 10*3/uL PT (9.9-11.9) sec INR (0.90-1.11) Est GFR (CKD-EPI)NonAf (60.0-200.0) Glucose (70-110) mg/dL POC Glucose (mg/dL) 235 H 190 H (70-110) mg/dL Calcium (8.7-10.3) mg/dL Microbiology - Last 24 Hours (Table) 07/12/22 20:36 Gram Stain - Preliminary Other - Other Wound Culture - Preliminary 07/11/22 13:05 Blood Culture - Preliminary Blood 07/11/22 13:20 Blood Culture - Preliminary Blood
[2022-07-14] MEDS: PANTOPRAZOLE 40 MG/10 ML VIAL IVP SCH (08:36)
[2022-07-14] MEDS: ENOXAPARIN 40 MG/0.4 ML SYRINGE SQ SCH (08:36)
[2022-07-14] MEDS: tiZANidine 4 MG TAB PO SCH (08:36)
--- NOTE | 2022-07-14 09:13 | P.PN ---
Progress Note - Text Progress Note Date: 07/14/22 Patient resting in bed. She states she does not feel well. She has some complaints of abdominal pain. On exam vital signs appear stable. Abdomen soft. There is some tenderness right lower quadrant. Severe appendicitis. Patient received IV antibiotics. She'll be discharged home when she is stable.
[2022-07-14 09:18] VITALS: BP 190/82; PULSE 73; RESP 19; TEMP 97.8
[2022-07-14] MEDS ORDERED: LOSARTAN 50 MG TAB PO SCH (09:30)
[2022-07-14] MEDS ORDERED: SODIUM CHLORIDE 0.9% 1,000 ML IV SCH (09:30)
[2022-07-14 11:30] LABS: Glucose,Whole Blood 225 mg/dL (70-110)
[2022-07-15 01:16] LABS: INR 1.19 (0.90-1.11); Prothrombin Time 13.4 sec (9.9-11.9)
--- NOTE | 2022-07-15 16:15 | P.PN ---
Subjective Progress Note Date: 07/14/22 Principal diagnosis: Sepsis/appendicitis Patient is a 56-year-old female with a past medical history significant for diabetes mellitus hypertension hyperlipidemia DVT renal disease presenting to the hospital for evaluation of lower abdominal pain , patient did have CT abdominal palate that was suspicious for appendicitis, patient is status post laparoscopic lysis of adhesion and drainage of the abscess On today's evaluation head that is 07/14/2022, the patient continuous to be afebrile, the patient abdominal pain has decreased in intensity, patient denies having any chest pain or shortness of breath or cough no nausea vomiting and no diarrhea Objective - Vital Signs Vital signs: Vital Signs Temp 97.8 F 07/14/22 07:29 Pulse 73 07/14/22 08:38 Resp 19 07/14/22 08:38 BP 190/82 07/14/22 07:29 Pulse Ox 97 07/14/22 07:29 FiO2 Intake & Output 07/13/22 07/14/22 07/14/22 18:59 06:59 18:59 Intake Total 100 200 Output Total 30 65 Balance 70 135 Intake: Intake, IV Titration 100 200 Amount Piperacillin-Tazobactam 3 100 200 .375 gm In Sodium Chloride 0.9% 100 ml @ 25 mls/hr IVPB Q8H COUNTS INCLUDE 234 BEDS AT THE [facility] Rx#: [id number] Output: Drainage 30 65 Left 30 65 Other: Voiding Method Toilet # Voids 3 - Exam GENERAL DESCRIPTION: Middle-age female lying in bed in no distress RESPIRATORY SYSTEM: Unlabored breathing , decreased breath sounds at bases HEART: S1 S2 regular rate and rhythm , ABDOMEN: Soft , mild tenderness EXTREMITIES: No edema feet - Labs CBC & Chem 7: 07/13/22 07:46 07/13/22 07:46 Labs: Abnormal Lab Results - Last 24 Hours (Table) 07/13/22 07/13/22 07/13/22 Range/Units 07:46 12:11 12:24 PT 14.3 H 14.7 H (9.9-11.9) sec INR 1.28 H 1.5 H (0.90-1.11) POC Glucose (mg/dL) 247 H (70-110) mg/dL 07/13/22 07/13/22 07/14/22 Range/Units 16:40 20:52 06:29 PT (9.9-11.9) sec INR (0.90-1.11) POC Glucose (mg/dL) 204 H 235 H 190 H (70-110) mg/dL 07/14/22 Range/Units 11:28 PT (9.9-11.9) sec INR (0.90-1.11) POC Glucose (mg/dL) 225 H (70-110) mg/dL Microbiology - Last 24 Hours (Table) 07/11/22 13:05 Blood Culture - Preliminary Blood 07/11/22 13:20 Blood Culture - Preliminary Blood 07/12/22 20:36 Gram Stain - Preliminary Other - Other Wound Culture - Preliminary Assessment and Plan (1) Acute appendicitis Status: Acute Code(s): K35.80 - UNSPECIFIED ACUTE APPENDICITIS SNOMED Code(s): 48152164 (2) Sepsis Status: Acute Code(s): A41.9 - SEPSIS, UNSPECIFIED ORGANISM SNOMED Code(s): 62553022 Plan: 1patient was in the hospital with sepsis in this patient with elevated white count hypotension abdominal pain, source is likely acute appendicitis with abnormal CT and we will need to cover for the enteric gram-negative both anaerobes and anaerobes 2-patient was found to have a ruptured appendicitis with localized abscess status post laparoscopic lysis of adhesion and drainage of the abscess and plan for delayed appendectomy as per discussion with the surgeon, patient has been insisting on going home for the Mother's Day, cultures are currently pending we will continue the patient on Zosyn and monitor clinical course closely Time with Patient: Less than 30
--- NOTE | 2022-07-15 22:43 | P.DS ---
Providers Date of admission: 07/11/22 15:04 Attending physician: Feliz Corrigan MD Consults: 07/11/22 15:03 Consult Physician Routine Consulting Provider: Yokasta Cruz Consult Reason/Comments: Acute appendicitis, sepsis Do you want consulting provider notified?: Yes 07/11/22 15:09 Consult Physician Routine Consulting Provider: Yajaira Talley Consult Reason/Comments: Appendicitis, sepsis Do you want consulting provider notified?: Yes Primary care physician: Peggy Malave Hospital Course: Final Diagnosis Acute appendicitis with sepsis status post laproscopic drainage of abscess/phlegmon with placement of JOAN drain and lysis of adhesions Leukocytosis secondary to the above Hypotension, secondary to the above Acute renal failure from sepsis now normalized Chronic renal failure stage III Diabetes Mellitus type 2 with hyperglycemia History of hypertension Hyperlipidemia History of DVT anticoagulated with warfarin History of peripheral vascular disease Former smoker Morbid obesity, BMI 37.9 Full Code Discharge Disposition Patient is stable for discharge home and will continue on IV antibiotics through [facility] as recommended by infectious disease. Patient continues with JOAN drain in the place with instructions on drainage and documenting output for follow up. Patient has PICC Line in place. Patient continues on insulin with long acting and scheduled insulin. Patient to monitor blood glucose and adjust with recommendations provided if blood glucose is below 250 to avoid hypoglycemia as diet is advanced as tolerated. Nausea has significant improved and patient is given zofran on discharge. OK to resume Warfarin on 07/15/2022 cleared with general surgery. Patient will repeat BMP/CBC and PT/INR in 2 days post discharge. Recommending to see PCP in 1 to 2 days. Hospital Course This is a 56 year old female with medical history of obesity, DVT anticoagulated with warfarin, diabetes mellitus, chronic kidney disease, peripheral vascular disease. Patient presents to the hospital with hypotension and abdominal pain. Had abdominal CT completed on admission which reveals right lower quadrant and mid pelvic inflammatory changes adjacent to a dilated tubular structure measuring 1.5 cm. Findings appear suggestive of acute appendicitis. phlegmon may be present in the right hemipelvis. Patient was admitted to the hospital for acute appendicitis with sepsis and consult placed to general surgery and infectious disease. Patient had a white count of 20.9 on admission, INR of 1.7, sodium of 133, creatinine of 1.44. Blood glucose of 213. Lactic acid normal at 1.4. Urinalysis showing rare bacteria. Patient was started on empiric antibiotics. Taken to the OR on 07/12/22 and underwent extensive lysis of adhesions, laproscopic drainage of periappendiceal abscess over 30 mL and pelvic . placement of JOAN drain left lower quadrant/pelvis, and peritoneal lavage. Cultures are taken. There were concrete dense adhesions involving the terminal ileum obscuring visualization of the appendix with phlegmon prohibiting safe resection of the appendix. Patient postoperative continued with nausea and abdominal pain which was treated with antiemetics and IV pain medication. Patient using incentive spirometer and able to get up to the restroom using wheel chair. Culture did finalized to E. Coli with no resistance. Blood culture shows no growth at 72 hours. Patient received PICC line and was discharged on 10 days of IV zosyn through [facility] infusion and will have close follow up with Dr. Cruz and Dr. Talley on discharge. White count improved to 14.30. Sodium improved to 142, creatinine normalized to 1.0. Patient has remained afebrile. Blood pressure normalized and patient was taken off IV fluids and resumed on home blood pressure medication. Most recent INR of 1.19 and patient is cleared to resume warfarin on 07/15/2022. Patient requesting discharge. Cleared with general surgery and infectious disease. 07/14/2022 Patient is evaluated today sitting up at the bedside. Reports abdominal discomfort about 4/10. Generalized per patient. She is passing gas and did have bowel movement. Urinating without difficulty. Denies any emesis or diarrhea. Reports nausesa has improved and she was able to tolerate diet today. No shortness of breath and no chest pain. Patient is using incentive spirometer. Lungs are clear, S1 S2 auscultated, abdomen is soft. Tender. Laproscopic incisions are clean and approximated. JOAN drain in place with serosanguineous drainage. Patient has PICC line in place. White count is down to 14 today, electrolytes have normalized, and kidney function improved. Remains afebrile and is on room air. Patient will be discharged home with the above mentioned recommendations. Please see medication reconciliation for a list of current medications. Thank you for allowing us to participate in the care of this patient. The impression and plan of care has been dictated by Lora Zabala, Nurse Practitioner as directed. Dr. Cristiane MD I have performed a history and physical examination and medical decision making of this patient, discussed the same with the dictator, and agree with the dictators assessment and plan as written, documented as a scribe. Based on total visit time, I have performed more than 50% of this visit. Patient Condition at Discharge: Good Plan - Discharge Summary New Discharge Prescriptions: New Ondansetron [Zofran] 4 mg PO Q8HR PRN #16 tab PRN Reason: Nausea Piperacillin-Tazobactam [Zosyn] 3.375 gm IVPB Q8H each Famotidine [Pepcid] 20 mg PO BID #30 tablet Continue sitaGLIPtin [Januvia] 100 mg PO DAILY@1700 Gabapentin [Neurontin] 800 mg PO TID Losartan Potassium [Cozaar] 50 mg PO DAILY Imipramine [Tofranil] 50 mg PO HS Pravastatin Sodium [Pravachol] 20 mg PO HS HYDROcodone/APAP 10-325MG [[place] 10-325] 1 tab PO DAILY PRN PRN Reason: Breakthrough Pain HYDROcodone/APAP 10-325MG [[place] 10-325] 1 tab PO W/LUNCH Morphine Sulfate ER [Ms Contin] 15 mg PO AC-BID Warfarin [Coumadin] 7.5 mg PO MOTUWETHFRSA Warfarin [Coumadin] 5 mg PO LR Insulin Aspart [NovoLOG Flexpen] 15 units SQ ACHS Insulin Glargine,Hum.rec.anlog [Lantus Solostar Pen] 55 units SQ HS tiZANidine HCL [Zanaflex] 6 mg PO TID Ergocalciferol [Vitamin D2 (1250 Mcg = 89519 Iu)] 1,250 mcg PO TH Topiramate [Topamax] 50 mg PO HS Discharge Medication List sitaGLIPtin [Januvia] 100 mg PO DAILY@1700 10/19/16 [History] Gabapentin [Neurontin] 800 mg PO TID 06/18/17 [History] Imipramine [Tofranil] 50 mg PO HS 06/18/17 [History] Losartan Potassium [Cozaar] 50 mg PO DAILY 06/18/17 [History] Pravastatin Sodium [Pravachol] 20 mg PO HS 06/18/17 [History] Ergocalciferol [Vitamin D2 (1250 Mcg = 35404 Iu)] 1,250 mcg PO TH 07/11/22 [History] HYDROcodone/APAP 10-325MG [[place] 10-325] 1 tab PO DAILY PRN 07/11/22 [History] HYDROcodone/APAP 10-325MG [[place] 10-325] 1 tab PO W/LUNCH 07/11/22 [History] Insulin Aspart [NovoLOG Flexpen] 15 units SQ ACHS 07/11/22 [History] Insulin Glargine,Hum.rec.anlog [Lantus Solostar Pen] 55 units SQ HS 07/11/22 [History] Morphine Sulfate ER [Ms Contin] 15 mg PO AC-BID 07/11/22 [History] Topiramate [Topamax] 50 mg PO HS 07/11/22 [History] Warfarin [Coumadin] 5 mg PO LR 07/11/22 [History] Warfarin [Coumadin] 7.5 mg PO MOTUWETHFRSA 07/11/22 [History] tiZANidine HCL [Zanaflex] 6 mg PO TID 07/11/22 [History] Famotidine [Pepcid] 20 mg PO BID #30 tablet 07/14/22 [Rx] Ondansetron [Zofran] 4 mg PO Q8HR PRN #16 tab 07/14/22 [Rx] Piperacillin-Tazobactam [Zosyn] 3.375 gm IVPB Q8H each 07/14/22 [Rx] Follow up Appointment(s)/Referral(s): Aging,[facility] [NON-STAFF] - Home Health,[facility] [NON-STAFF] - As Needed ([facility] will call you to schedule your in home nursing visits for outpatient IV antibiotic teaching. Your first visit will be on 07/15/22 in the morning. ) [facility]fusion [NON-STAFF] - As Needed ([facility] will deliver supplies to your house on the evening of 07/14/22. They will call before delivery.) Peggy Malave MD [Primary Care Provider] - 1-2 days [facility] [NON-STAFF] - Yokasta Cruz MD [STAFF PHYSICIAN] - 1 Week Yajaira Talley MD [STAFF PHYSICIAN] - 1 Week Ambulatory/Diagnostic Orders: Basic Metabolic Panel [LAB.AMB] Time Frame: 3 Days, Location: None Selected Complete Blood Count w/diff [LAB.AMB] Time Frame: 3 Days, Location: None Selected Prothrombin Time INR [LAB.AMB] Time Frame: 3 Days, Location: None Selected Activity/Diet/Wound Care/Special Instructions: Continue diet as tolerated continue antinausea medications as needed JOAN drain in place and keep log for surgery of amount of drainage Resume home insulin. Recommend to check blood sugar ACHS and adjust insulin if needed. If appetite is low and blood glucose is below 250 recommending using 7 units with meals in place of 15 units to avoid hypoglcemia. Resume home lantus. Decrease dose to 40 units HS if blood glucose is below 250. Follow up PT/INR Discharge/Stand Alone Forms: Who Do I Call? Discharge Disposition: HOME WITH HOME HEALTH SERVICES
== END 2022-07-14 17:17 | disposition home health service (06) | DRG 853 ==
LOC: EC 12:32 → 4SSUR 15:04
PROVIDERS: ADMIT Family Medicine; ATTEND Family Medicine
PROC: 0W9G40Z Drainage of Peritoneal Cavity with Drainage Device, Percutaneous Endoscopic Approach (ICD-10-PCS; 2022-07-12)
PROC: 8E0W4CZ Robotic Assisted Procedure of Trunk Region, Percutaneous Endoscopic Approach (ICD-10-PCS; 2022-07-12)
PROC: 3E1M48Z Irrigation of Peritoneal Cavity using Irrigating Substance, Percutaneous Endoscopic Approach (ICD-10-PCS; 2022-07-12)
PROC: 0DNW4ZZ Release Peritoneum, Percutaneous Endoscopic Approach (ICD-10-PCS; principal; 2022-07-12 14:50)
PROC: 02HV33Z Insertion of Infusion Device into Superior Vena Cava, Percutaneous Approach (ICD-10-PCS; 2022-07-13)
DX: A41.51 Sepsis due to Escherichia coli [E. coli] (principal); K35.33 Acute appendicitis with perforation, localized peritonitis, and gangrene, with abscess; N17.9 Acute kidney failure, unspecified; I13.10 Hypertensive heart and chronic kidney disease without heart failure, with stage 1 through stage 4 chronic kidney disease, or unspecified chronic kidney disease; E11.22 Type 2 diabetes mellitus with diabetic chronic kidney disease; E11.40 Type 2 diabetes mellitus with diabetic neuropathy, unspecified; E11.51 Type 2 diabetes mellitus with diabetic peripheral angiopathy without gangrene; D50.9 Iron deficiency anemia, unspecified; N18.30 Chronic kidney disease, stage 3 unspecified; E66.01 Morbid (severe) obesity due to excess calories; F32.A Depression, unspecified; E11.65 Type 2 diabetes mellitus with hyperglycemia; M19.90 Unspecified osteoarthritis, unspecified site; E78.5 Hyperlipidemia, unspecified; N73.6 Female pelvic peritoneal adhesions (postinfective); M79.7 Fibromyalgia; Z79.4 Long term (current) use of insulin; Z89.432 Acquired absence of left foot; Z89.431 Acquired absence of right foot; Z95.820 Peripheral vascular angioplasty status with implants and grafts; Z68.37 Body mass index [BMI] 37.0-37.9, adult; Z79.899 Other long term (current) drug therapy; Z95.828 Presence of other vascular implants and grafts; Z79.01 Long term (current) use of anticoagulants; Z79.891 Long term (current) use of opiate analgesic; Z79.84 Long term (current) use of oral hypoglycemic drugs; Z28.310 Unvaccinated for COVID-19; Z87.891 Personal history of nicotine dependence; Z86.718 Personal history of other venous thrombosis and embolism; Z90.01 Acquired absence of eye
CPT/HCPCS: 36415; 36573; 74176; 80048; 80053; 81001; 82150; 83605; 83690; 85025; 85610; 85730; 87070; 87075; 87077; 87186; 87205; 93005; 96361; 96365; 96366; 96367; 96375; 99291

== ENCOUNTER → 2022-08-07 | Outpatient (CLI) | payer BC ==
[2022-08-07 12:11] LABS: African American GFR (CKD) 75 (>60 ml/min/1.73 sqM); Blood Urea Nitrogen 20 mg/dL (7-17); Non-African American GFR(CKD) 65 (>60 ml/min/1.73 sqM)
--- NOTE | 2022-08-07 13:28 | CT ---
EXAMINATION TYPE: CT abdomen pelvis w con DATE OF EXAM: 08/07/2022 COMPARISON: None HISTORY: abdominal pain, ruptured appendix CT DLP: 1760.20 mGycm CONTRAST: CT scan of the abdomen and pelvis is performed with Oral Contrast and with IV Contrast, patient injec roverto with 100 mL of Isovue 300. FINDINGS: LUNG BASES-: No visible nodule. No infiltrate. Small hiatal hernia noted. LIVER/GB: No calcified gallstones. Hepatic steatosis of mild hepatomegaly. No space occupying hepa tic lesion. Biliary tree is of normal caliber. PANCREAS: No inflammation. No distinct mass. SPLEEN: No splenic enlargement. No lesion seen. ADRENALS: No nodule. No thickening. KIDNEYS/BLADDER: No hydronephrosis. No nephrolithiasis. Exophytic cyst lower pole left kidney as we ll as several smaller subcentimeter cysts. Urinary bladder grossly unremarkable. BOWEL: Normal appendix. Normal bowel caliber. No inflammation. GENITAL ORGANS: Hysterectomy and oophorectomy changes noted. LYMPH NODES: No greater than 1cm abdominal or pelvic lymph nodes are appreciated. AORTA: No significant abnormality. OSSEOUS STRUCTURES: Severe degenerative change L4-5. OTHER: No significant additional abnormality is seen. IMPRESSION: 1. No evidence for acute intra-abdominal or intrapelvic process. 2. Hepatic steatosis with mild hepatic enlargement.
== END | disposition home or self-care (01) ==
LOC: RADCTMAIN 11:03
PROVIDERS: ATTEND Surgery Plastic and Reconstructive Surgery
DX: K76.0 Fatty (change of) liver, not elsewhere classified (principal); K35.80 Unspecified acute appendicitis; R16.0 Hepatomegaly, not elsewhere classified
CPT/HCPCS: 82565; 84520; 74177; 36415; Q9967

== ENCOUNTER 2022-08-15 07:23 | Day surgery (SDC) | payer BC ==
[2022-08-13 14:51] VITALS: BMI 35.9
[~2022-08-15 07:23] MED LIST changes: -DEXAMETHASONE SOD PHOSPHATE 10 MG/ML 1 ML VIAL IV ONE; -FAMOTIDINE 20 MG/2 ML VIAL IV ONE; +LIDOCAINE 1% (10MG/ML) FOR IV START INTRADERMA PRN; -MIDAZOLAM 2 MG/2 ML VIAL IV PRN; -ONDANSETRON 4 MG/2 ML VIAL IVP ONE; -Pre Op ABX Message 1 EACH MISC MISCELLANE ONE; -SCOPOLAMINE 1.5MG/72HR PATCH TRANSDERM ONE; -fentaNYL (PF) 50 MCG/ML 2 ML AMP IV PRN
[2022-08-15 08:01] VITALS: TEMP 96.8
[2022-08-15 08:08] LABS: Glucose,Whole Blood 158 mg/dL (70-110)
[2022-08-15] MEDS ORDERED: PROPOFOL 10 MG/ML 20 ML VIAL IV ONE (08:20)
[2022-08-15] MEDS ORDERED: LIDOCAINE 2% INJ 20 MG/ML (2 ML VIAL) ONE (08:20)
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
[2022-08-15 09:07] LABS: Glucose,Whole Blood 161 mg/dL (70-110)
[2022-08-15 09:25] VITALS: BP 117/74; PULSE 61; RESP 20
--- NOTE | 2022-08-15 09:35 | P.PCN ---
Date of Procedure: 08/15/22 Description of Procedure: PREOPERATIVE DIAGNOSIS: Colonoscopy screening POSTOPERATIVE DIAGNOSIS: Tubular adenoma descending colon Tubular adenoma hepatic flexure Tubular adenoma transverse colon Sigmoid colon stricture Internal hemorrhoids, grade 3 OPERATION: Colonoscopy to the ileocecal valve and appendiceal orifice, cecum Colonoscopy with hot snare polypectomy SURGEON: Yokasta Cruz MD. ANESTHESIA: MAC. INDICATIONS: The patient is an 57-year-old female who presents her first colonoscopy screening. Benefits and risks were described and informed consent was obtained. DESCRIPTION OF PROCEDURE: The patient had undergone Sutab prep. The patient had been brought into the operating room and laid in the left lateral decubitus position. After adequate intravenous sedation, the rectum was examined with 2% lidocaine jelly. External hemorrhoids were encountered. The rectal tone was within normal limits. No lesions were palpated in the rectal vault. An Olympus colonoscope was advanced until the cecum, ileocecal valve and appendiceal orifice were clearly viewed. The prep was fair. No sigmoid diverticulosis was encountered. Sigmoid stricture was identified. Colonic polyps were found and removed. No evidence of focal colitis was found. Retroflexion of the scope demonstrated grade 2 internal hemorrhoids without active bleeding or inflammation. The colon was desufflated. The patient had tolerated the procedure well. Withdrawal time was over 6 minutes. FINDINGS: Aronchick preparation quality scale 2 (1-5) Internal hemorrhoids, grade 3 External hemorrhoids, grade 3. No arteriovenous malformations. No sigmoid diverticulosis Sigmoid stricture Removal of 4 polyps: - Snare polypectomy descending colon, 5 mm tubulovillous adenoma - Snare polypectomy transverse colon 2, 6 to 8 mm flat villous adenoma. - Snare polypectomy of ascending, 12 mm flat villous adenoma, removed in piecemeal. No focal colitis. RECOMMENDATIONS: Given severity of tubular adenomas, recommend repeat colonoscopy in 6 months January 2023 due to piecemeal resection of high risk colon adenoma Plan - Discharge Summary Discharge Rx Participant: No New Discharge Prescriptions: Continue sitaGLIPtin [Januvia] 100 mg PO DAILY@1200 Gabapentin [Neurontin] 800 mg PO TID Losartan Potassium [Cozaar] 50 mg PO QAM Imipramine [Tofranil] 50 mg PO HS Pravastatin Sodium [Pravachol] 20 mg PO HS HYDROcodone/APAP 10-325MG [[place] 10-325] 1 tab PO BID Morphine Sulfate ER [Ms Contin] 15 mg PO AC-BID Warfarin [Coumadin] 7.5 mg PO MOTUWETHFRSA Warfarin [Coumadin] 5 mg PO LR Insulin Aspart [NovoLOG Flexpen] 0 units SQ AC-TID PRN MDD sliding scale PRN Reason: Blood Sugar - High Insulin Glargine,Hum.rec.anlog [Lantus Solostar Pen] 55 units SQ HS tiZANidine HCL [Zanaflex] 6 mg PO TID Ergocalciferol [Vitamin D2 (1250 Mcg = 23552 Iu)] 1,250 mcg PO TH Topiramate [Topamax] 50 mg PO HS Discharge Medication List sitaGLIPtin [Januvia] 100 mg PO DAILY@1200 10/19/16 [History] Gabapentin [Neurontin] 800 mg PO TID 06/18/17 [History] Imipramine [Tofranil] 50 mg PO HS 06/18/17 [History] Losartan Potassium [Cozaar] 50 mg PO QAM 06/18/17 [History] Pravastatin Sodium [Pravachol] 20 mg PO HS 06/18/17 [History] Ergocalciferol [Vitamin D2 (1250 Mcg = 64463 Iu)] 1,250 mcg PO TH 07/11/22 [History] HYDROcodone/APAP 10-325MG [[place] 10-325] 1 tab PO BID 07/11/22 [History] Insulin Aspart [NovoLOG Flexpen] 0 units SQ AC-TID PRN MDD sliding scale 07/11/22 [History] Insulin Glargine,Hum.rec.anlog [Lantus Solostar Pen] 55 units SQ HS 07/11/22 [History] Morphine Sulfate ER [Ms Contin] 15 mg PO AC-BID 07/11/22 [History] Topiramate [Topamax] 50 mg PO HS 07/11/22 [History] Warfarin [Coumadin] 5 mg PO LR 07/11/22 [History] Warfarin [Coumadin] 7.5 mg PO MOTUWETHFRSA 07/11/22 [History] tiZANidine HCL [Zanaflex] 6 mg PO TID 07/11/22 [History] Follow up Appointment(s)/Referral(s): Yokasta Cruz MD [STAFF PHYSICIAN] - 08/28/22 (TELEHEALTH) Patient Instructions/Handouts: *Surgery [facility] - (Anesthesia) Discharge Instructions Outpatient Surgery, Colorectal Polyps (GEN) Activity/Diet/Wound Care/Special Instructions: Repeat colonoscopy in 6 months, January 2023 Discharge Disposition: HOME SELF-CARE
--- NOTE | 2022-08-15 10:56 | P.PN ---
Progress Note - Text Progress Note Date: 08/15/22 Lovenox bridging described due to pre-existing anticoagulant therapy and need for additional surgery within 1 week
== END 2022-08-15 09:47 | disposition home or self-care (01) ==
LOC: ORWHC2ENDO 07:23
PROVIDERS: ATTEND Surgery Plastic and Reconstructive Surgery
DX: Z12.11 Encounter for screening for malignant neoplasm of colon (principal); D12.2 Benign neoplasm of ascending colon; D12.3 Benign neoplasm of transverse colon; D12.4 Benign neoplasm of descending colon; K64.2 Third degree hemorrhoids; K64.4 Residual hemorrhoidal skin tags; K56.609 Unspecified intestinal obstruction, unspecified as to partial versus complete obstruction; I10 Essential (primary) hypertension; E78.5 Hyperlipidemia, unspecified; E11.51 Type 2 diabetes mellitus with diabetic peripheral angiopathy without gangrene; J44.9 Chronic obstructive pulmonary disease, unspecified; Z87.891 Personal history of nicotine dependence; F10.20 Alcohol dependence, uncomplicated; Z86.718 Personal history of other venous thrombosis and embolism; M79.7 Fibromyalgia; M19.90 Unspecified osteoarthritis, unspecified site; Z87.442 Personal history of urinary calculi; G89.29 Other chronic pain; Z79.01 Long term (current) use of anticoagulants; Z79.4 Long term (current) use of insulin; Z79.84 Long term (current) use of oral hypoglycemic drugs; Z79.52 Long term (current) use of systemic steroids; Z79.899 Other long term (current) drug therapy
CPT/HCPCS: 88305; 45385; J2704; J2001

== ENCOUNTER 2022-08-23 11:04 | Day surgery (SDC) | payer BC ==
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
[~2022-08-23 11:04] MED LIST changes: +ACETAMINOPHEN TAB 500 MG TAB PO PRN; +DEXAMETHASONE SOD PHOSPHATE 4 MG/ML 1 ML VIAL IV ONE; +HEPARIN SODIUM,PORCINE/PF 5,000 UNIT/0.5 ML SYRINGE SQ PRN; +HYDROmorphone 0.5 MG/0.5 ML SYRINGE IVP PRN; -LIDOCAINE 1% (10MG/ML) FOR IV START INTRADERMA PRN; +ONDANSETRON 4 MG/2 ML VIAL IVP ONE; +ONDANSETRON 4 MG/2 ML VIAL IVP PRN; +metroNIDAZOLE-NS PMX 500 MG in SALINE 1 100ML.BAG IVPB PRN
[2022-08-23] MEDS ORDERED: LACTATED RINGERS 1,000 ML IV ONE ×2 (11:31→13:34)
[2022-08-23 11:54] LABS: Basophils % (A) 0 %; Eosinophils # (A) 0.2 k/uL (0-0.7); Eosinophils % (A) 3 %; HCT 38.8 % (34.0-46.0); Lymphocytes # (A) 3.4 k/uL (1.0-4.8); Lymphocytes % (A) 35 %; MCH 31.4 pg (25.0-35.0); MCHC 33.6 g/dL (31.0-37.0); MCV 93.4 fL (80.0-100.0); Monocytes # (A) 0.3 k/uL (0-1.0); Monocytes % (A) 3 %; Neutrophils # (A) 5.7 k/uL (1.3-7.7); Neutrophils % (A) 58 %; Platelet Count 202 k/uL (150-450); RBC 4.15 m/uL (3.80-5.40); RDW 13.1 % (11.5-15.5); WBC 9.8 k/uL (3.8-10.6)
[2022-08-23] MEDS ORDERED: PHENYLEPHRINE-0.9% NACL SYG 1,000 MCG/10 ML SYRINGE ONE (11:56)
[2022-08-23] MEDS ORDERED: SUCCINYLCHOLINE CHLORIDE 200 MG/10 ML VIAL IV ONE (11:56)
[2022-08-23] MEDS ORDERED: LIDOCAINE 4% LTA KIT (4 ML) TOPICAL ONE (11:56)
[2022-08-23] MEDS ORDERED: PROPOFOL 10 MG/ML 20 ML VIAL IV ONE (11:56)
[2022-08-23] MEDS ORDERED: fentaNYL (PF) 50 MCG/ML 2 ML AMP ONE (11:56)
[2022-08-23] MEDS ORDERED: GLYCOPYRROLATE 0.2 MG/ML 2 ML VIAL ONE (11:56)
[2022-08-23] MEDS ORDERED: SUGAMMADEX SODIUM 200 MG/2 ML SDV IV ONE (11:56)
[2022-08-23] MEDS ORDERED: LIDOCAINE 2% INJ 20 MG/ML (2 ML VIAL) ONE (11:56)
[2022-08-23] MEDS ORDERED: HEPARIN SODIUM,PORCINE 5,000 UNIT/ML 1 ML VIAL ONE (11:56)
[2022-08-23] MEDS ORDERED: ROCURONIUM 10 MG/ML (5 ML VIAL) IV ONE (11:56)
[2022-08-23] MEDS ORDERED: NEOSTIGMINE 1 MG/ML 10 ML VIAL ONE (11:56)
[2022-08-23] MEDS ORDERED: MIDAZOLAM 2 MG/2 ML VIAL ONE (11:56)
[2022-08-23 11:59] LABS: INR 0.9 (<1.2); Prothrombin Time 9.5 sec (9.0-12.0)
[2022-08-23] MEDS ORDERED: LIDOCAINE 0.5%-EPI 1:200,000 50 ML VIAL SQ ONE (12:21)
[2022-08-23 14:09] VITALS: TEMP 97.6
[2022-08-23] MEDS ORDERED: HYDROcodone/APAP 10-325MG 1 EACH TAB PO PRN (14:43)
[2022-08-23 15:32] VITALS: PULSE 86
[2022-08-23 15:47] VITALS: BP 111/69; RESP 18
--- NOTE | 2022-08-23 17:12 | P.OP ---
Date of Procedure: 08/23/22 Description of Procedure: SURGEON: YOKASTA CRUZ MD Preoperative Diagnosis: 1. Acute appendicitis with previous history of heart 2. Diabetes type 2, insulin-dependent 3. Diabetes type 2 with diabetic nephropathy 4. Seizure disorder 5. Chronic pain syndrome 6. Hypercoagulable state 7. Hypertensive heart disease 8. Previous history of the venous thrombosis 9. Peripheral vascular occlusive disease 10. Diabetic neuropathy 11. Fibromyalgia 12. History of bilateral transmetatarsal bilateral feet Postoperative Diagnosis: 1. Acute appendicitis 2. Diabetes type 2, insulin-dependent 3. Diabetes type 2 with diabetic nephropathy 4. Seizure disorder 5. Chronic pain syndrome 6. Hypercoagulable state 7. Hypertensive heart disease 8. Previous history of the venous thrombosis 9. Peripheral vascular occlusive disease 10. Diabetic neuropathy 11. Fibromyalgia 12. History of bilateral transmetatarsal bilateral feet 13. Right ovarian cyst, benign 14. Right pelvic adhesions Procedure(s) Performed: 1. Robotic-assisted daVinci Xi laparoscopic lysis of adhesions over 30 minutes 2. Robotic-assisted daVinci Xi laparoscopic appendectomy Anesthesia: GETA, local Estimated Blood Loss (ml): 5 Pathology: other (appendix) Condition: stable Disposition: floor Operative Findings: 1. Appendix densely adherent to right ovary and pelvis requiring extensive lysis of adhesions over 30 minutes 2. Pelvic adhesions from prior hysterectomy lysed INDICATIONS: The patient is a 57-year-old female who presents with prior ruptured appendicitis with phlegmon treated with interval appendectomy after IV antibiotics. She presents for excision/appendectomy. Benefits and risks, including infection, open surgery, and bleeding for additional surgery was discussed at length. Informed consent was obtained. All questions of the patient and family were answered. DESCRIPTION: The patient was transferred to the operating room and placed in supine position. The patient had previously voided. The abdomen was then prepped and draped in standard sterile fashion as Ioban was placed along the abdomen to minimize any contamination of skin floor. After a timeout protocol was performed, attention was then brought to the left upper quadrant whereby a 0 degree 5 mm laparoscopic trocar entry was performed. The abdominal cavity was entered and insufflated to 12 mmHg pressure, which was tolerated well. Diagnostic laparoscopy demonstrated no injury to bowel, viscera or mesentery. Next a robotic 8-mm trocar was placed along the left lower quadrant, 10-cm lateral to the midline. A 12 mm port was placed along the left upper quadrant and another 8-mm port left lateral abdominal wall. Ports were placed 8 cm apart from each other including 15-20 cm away from the target anatomy of the right pelvis. The patient was then placed in Trendelenburg position, at least 14 down and right side up at least 7. The robotic da Fred XI system was primed and docked from the left side of the patient. Using atraumatic graspers and vessel sealer, the robotic system was docked and primed as described. Instruments were interchanged by the education assistant including graspers, robotic stapler and vessel sealer. Moderate pelvic adhesions of omentum to abdominal wall from prior hysterectomy was identified and lysed using vessel sealer. Next, attention was brought to identify the cecum. The appendix was densely adherent to the right posterior retroperitoneal pelvis with perfusion to the right ovary and benign cyst. An internal hernia involving the right lower quadrant adhesion band was lysed. Extensive dissection was performed with resection of the appendix at the base of the cecum. Blue 45 mm robotic staple loads were fired along the base of the appendix. The staple line was hemostatic. Hemostasis was checked prior to undocking the robot. The robot was undocked. I re-scrubbed into the case. The specimen was removed from the abdominal cavity with an Endo Catch bag through the 12 mm trocar at the left upper quadrant. All instruments and pneumoperitoneum were evacuated from the abdominal cavity. Local anesthetic was infiltrated to all wounds for postop analgesia. All incisions were also cleansed with diluted hydrogen peroxide. The incisions were closed with 4-0 Monocryl. Exofin glue was applied to the rest of the skin incisions. The patient had tolerated the procedure well. The patient was extubated successfully. The patient was transferred to the postanesthesia care unit in stable condition. Plan - Discharge Summary Discharge Rx Participant: No New Discharge Prescriptions: Continue sitaGLIPtin [Januvia] 100 mg PO DAILY@1200 Gabapentin [Neurontin] 800 mg PO TID Losartan Potassium [Cozaar] 25 mg PO QAM Imipramine [Tofranil] 50 mg PO HS Pravastatin Sodium [Pravachol] 20 mg PO HS HYDROcodone/APAP 10-325MG [[place]gema 10-325] 1 tab PO BID Morphine Sulfate ER [Ms Contin] 15 mg PO AC-BID Warfarin [Coumadin] 7.5 mg PO MOTUWETHFRSA Warfarin [Coumadin] 5 mg PO LR Insulin Aspart [NovoLOG Flexpen] 0 units SQ AC-TID PRN MDD sliding scale PRN Reason: Blood Sugar - High Insulin Glargine,Hum.rec.anlog [Lantus Solostar Pen] 55 units SQ HS tiZANidine HCL [Zanaflex] 6 mg PO TID Ergocalciferol [Vitamin D2 (1250 Mcg = 26483 Iu)] 1,250 mcg PO TH Topiramate [Topamax] 50 mg PO HS Enoxaparin [Lovenox] 40 mg SQ DAILY #7 each Discharge Medication List sitaGLIPtin [Januvia] 100 mg PO DAILY@1200 10/19/16 [History] Gabapentin [Neurontin] 800 mg PO TID 06/18/17 [History] Imipramine [Tofranil] 50 mg PO HS 06/18/17 [History] Losartan Potassium [Cozaar] 25 mg PO QAM 06/18/17 [History] Pravastatin Sodium [Pravachol] 20 mg PO HS 06/18/17 [History] Ergocalciferol [Vitamin D2 (1250 Mcg = 54298 Iu)] 1,250 mcg PO TH 07/11/22 [History] HYDROcodone/APAP 10-325MG [[place] 10-325] 1 tab PO BID 07/11/22 [History] Insulin Aspart [NovoLOG Flexpen] 0 units SQ AC-TID PRN MDD sliding scale 07/11/22 [History] Insulin Glargine,Hum.rec.anlog [Lantus Solostar Pen] 55 units SQ HS 07/11/22 [History] Morphine Sulfate ER [Ms Contin] 15 mg PO AC-BID 07/11/22 [History] Topiramate [Topamax] 50 mg PO HS 07/11/22 [History] Warfarin [Coumadin] 5 mg PO LR 07/11/22 [History] Warfarin [Coumadin] 7.5 mg PO MOTUWETHFRSA 07/11/22 [History] tiZANidine HCL [Zanaflex] 6 mg PO TID 07/11/22 [History] Enoxaparin [Lovenox] 40 mg SQ DAILY #7 each 08/15/22 [Rx] Follow up Appointment(s)/Referral(s): Yokasta Cruz MD [STAFF PHYSICIAN] - 08/28/22 (TELEHEALTH) Patient Instructions/Handouts: *Surgery [facility] - (Anesthesia) Discharge Instructions Outpatient Surgery, Laparoscopic Appendectomy (GEN) Activity/Diet/Wound Care/Special Instructions: TELEHEALTH - DR WILL CALL YOU BETWEEN 8 am to 8 pm Recommend low-fat diet for the next 2 days. No lifting over 10 pounds in 2 weeks until September 06July shower. No bath tub soaks for two weeks until September 06 Diet as tolerated. Use Tylenol, simethicone and ibuprofen or Aleve scheduled for the next 24-48 hours for best pain relief. Use ice along incisions for today to prevent swelling. Discharge Disposition: HOME SELF-CARE
--- NOTE | 2022-08-29 19:38 | P.PN ---
Progress Note - Text Progress Note Date: 08/29/22 Patient contacted at home. She reports doing well. Pathology is still pending. Pathology from colonoscopy reviewed demonstrates tubular adenoma. Follow-up colonoscopy in 3 years, 2025.
== END 2022-08-23 16:13 | disposition home or self-care (01) ==
LOC: OR 11:04
PROVIDERS: ATTEND Surgery Plastic and Reconstructive Surgery
DX: K35.32 Acute appendicitis with perforation, localized peritonitis, and gangrene, without abscess (principal); N73.6 Female pelvic peritoneal adhesions (postinfective); E11.9 Type 2 diabetes mellitus without complications; M79.7 Fibromyalgia; E78.5 Hyperlipidemia, unspecified; I10 Essential (primary) hypertension; M19.90 Unspecified osteoarthritis, unspecified site; Z90.710 Acquired absence of both cervix and uterus; Z98.891 History of uterine scar from previous surgery; Z98.890 Other specified postprocedural states; F17.200 Nicotine dependence, unspecified, uncomplicated; Z82.49 Family history of ischemic heart disease and other diseases of the circulatory system; Z83.3 Family history of diabetes mellitus; Z79.84 Long term (current) use of oral hypoglycemic drugs; Z79.899 Other long term (current) drug therapy; Z79.4 Long term (current) use of insulin
CPT/HCPCS: 44970; S2900; 85025; 85610; 88304

== ENCOUNTER → 2023-07-05 | Outpatient (CLI) | payer BC ==
--- NOTE | 2023-07-06 14:53 | CT ---
EXAMINATION TYPE: CT lumbar spine wo con DATE OF EXAM: 07/05/2023 COMPARISON: 05/24/2014 HISTORY: Low back pain, degenerative disc disease CT DLP: 1543.50 mGycm CONTRAST: None TECHNIQUE: CT of the lumbar spine is performed on a spiral scan at 3 mm thick sections. Reconstructed images are performed in the coronal and sagittal planes. FINDINGS: T12-L1: No focal disc herniation or significant disc bulge is evident. No spinal canal stenosis or neural foraminal stenosis is present. L1-L2: No focal disc herniation or significant disc bulge is evident. No spinal canal stenosis or n eural foraminal stenosis is present L2-L3: Minimal disc bulge is present with intrathecal sac contact. No AP spinal canal stenosis presen t. Neural foramen are patent. Mild facet hypertrophy is present. No spinal canal stenosis or neural f oraminal stenosis is present L3-L4: Broad-based disc bulge has mild to moderate intrathecal sac compression. Facet hypertrophy and ligamentum flavum laxity are present contributing to spinal canal stenosis. Moderate right and mild left foraminal narrowing is present. L4-L5: Endplate spurring is present. Associated disc material has moderate intrathecal sac impression . This is greater into the left foramen. Correlate for severe left foraminal stenosis. Moderate right foraminal narrowing may be present. Correlate with radicular symptoms. Spinal canal stenosis is pres ent. There is loss of disc height is normal. Minimal vacuum disc phenomenon is present. L5-S1: No focal disc herniation or significant disc bulge is evident. No spinal canal stenosis or n eural foraminal stenosis is present Vertebral alignment appears normal. IMPRESSION: Spinal canal stenosis L4-5 secondary to facet hypertrophy and ligamentum flavum laxity and disc bulge . 2. Very severe left L4-5 foraminal stenosis due to spurring and associated disc material. 3. Mild L3-4 spinal canal stenosis due to disc bulging and ligamentum flavum laxity.
== END | disposition home or self-care (01) ==
LOC: RADCTMAIN 12:22
PROVIDERS: ATTEND Psychiatry & Neurology Neurology
DX: M51.36 Other intervertebral disc degeneration, lumbar region (principal); M47.816 Spondylosis without myelopathy or radiculopathy, lumbar region; M24.28 Disorder of ligament, vertebrae; M99.73 Connective tissue and disc stenosis of intervertebral foramina of lumbar region; M48.061 Spinal stenosis, lumbar region without neurogenic claudication
CPT/HCPCS: 72131

== ENCOUNTER 2023-08-04 22:38 | Emergency (ER) | payer BC ==
[2023-08-04 23:49] LABS: Amorphous Sediment,Urine Few /hpf; Appearance,Urine Turbid (Clear); Bacteria,Urine Many /hpf; Bilirubin,Urine Negative (Negative); Blood,Urine Moderate (Negative); Color,Urine Yellow; Glucose,Urine (UA) 3+ (Negative); Granular Casts,Urine 7 /lpf (0); Hyaline Casts,Urine 13 /lpf (0-2); Ketones,Urine Negative (Negative); Leukocyte Esterase,Urine Large (Negative); Mucus,Urine Occasional /hpf; Nitrite,Urine Positive (Negative); Protein,Urine 2+ (Negative); RBC,Urine 100 /hpf (0-5); Specific Gravity,Urine 1.018 (1.001-1.035); Squamous Epithelial Cell,Urine 6 /hpf (0-4); Urobilinogen,Urine <2.0 mg/dL (<2.0); WBC,Urine >182 /hpf (0-5)
[2023-08-04] MEDS: SODIUM CHLORIDE 0.9% 1,000 ML IV STA (23:53)
[2023-08-04] MEDS: HYDROmorphone 1 MG/ML 1 ML SYRINGE IVP STA (23:53)
[2023-08-04] MEDS: KETOROLAC 15 MG/ML 1 ML VIAL IVP STA (23:54)
[2023-08-05 00:09] LABS: Basophils # (A) 0.1 k/uL (0-0.2); Basophils % (A) 0 %; Eosinophils # (A) 0.1 k/uL (0-0.7); Eosinophils % (A) 1 %; HGB 14.5 gm/dL (11.4-16.0); Lymphocytes # (A) 2.6 k/uL (1.0-4.8); Lymphocytes % (A) 15 %; MCH 30.7 pg (25.0-35.0); MCHC 33.1 g/dL (31.0-37.0); MCV 92.9 fL (80.0-100.0); Mean Platelet Volume 8.8; Monocytes # (A) 0.6 k/uL (0-1.0); Monocytes % (A) 4 %; Neutrophils % (A) 80 %; Platelet Count 246 k/uL (150-450); RBC 4.74 m/uL (3.80-5.40); RDW 12.6 % (11.5-15.5); WBC 17.5 k/uL (3.8-10.6)
[2023-08-05 00:25] LABS: ALT 16 U/L (4-34); AST 15 U/L (14-36); African American GFR (CKD) 87 (>60 ml/min/1.73 sqM); Albumin 4.4 g/dL (3.5-5.0); Alkaline Phosphatase 92 U/L (38-126); Anion Gap 8 mmol/L; Blood Urea Nitrogen 19 mg/dL (7-17); Calcium 9.5 mg/dL (8.4-10.2); Carbon Dioxide 22 mmol/L (22-30); Chloride 105 mmol/L (98-107); Glucose 161 mg/dL (74-99); Non-African American GFR(CKD) 76 (>60 ml/min/1.73 sqM); Potassium 3.8 mmol/L (3.5-5.1); Sodium 135 mmol/L (137-145); Total Bilirubin 0.7 mg/dL (0.2-1.3); Total Protein 7.5 g/dL (6.3-8.2)
[2023-08-05] MEDS: ACETAMINOPHEN TAB 500 MG TAB PO STA (02:24)
[2023-08-05] MEDS: HYDROmorphone 1 MG/ML 1 ML SYRINGE IVP STA ×2 (02:25→05:55)
[2023-08-05] MEDS: cefTRIAXone IN SWFI 1,000 MG/10 ML SYRINGE IVP STA ×2 (02:31)
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
[2023-08-05 04:43] VITALS: TEMP 98.4
--- NOTE | 2023-08-05 05:32 | CT ---
EXAM: CT Abdomen and Pelvis Without Intravenous Contrast CLINICAL HISTORY: ITS.REASON CT Reason: dysuria flank pain r/o obstructive stone TECHNIQUE: Axial computed tomography images of the abdomen and pelvis without intravenous contrast. CTDI is 23.1 mGy and DLP is 1456 mGy-cm. This CT exam was performed using one or more of the following dose reduction techniques: automated exposure control, adjustment of the mA and/or kV according to patient size, and/or use of iterative reconstruction technique. COMPARISON: No relevant prior studies available. FINDINGS: Limitations: Limited evaluation in the absence of contrast. Lung bases: Mild motion artifact noted at the lung bases. No consolidation. Mediastinum: Small hiatal hernia. ABDOMEN: Liver: Unremarkable. Gallbladder and bile ducts: Unremarkable. No calcified stones. No ductal dilation. Pancreas: Unremarkable. No ductal dilation. Spleen: Unremarkable. No splenomegaly. Adrenals: Unremarkable. No mass. Kidneys and ureters: No evidence of radiopaque renal calculi or signs of collecting system dilatation. Simple left renal cyst. No follow-up of this simple cyst is necessary. Stomach and bowel: No evidence of bowel obstruction. No mucosal thickening. PELVIS: Appendix: Appendectomy changes. Bladder: Diffuse bladder wall thickening with adjacent stranding. Findings can be seen with cystitis. Consider correlation with laboratory values. No stones. Reproductive: Unremarkable as visualized. ABDOMEN and PELVIS: Intraperitoneal space: Unremarkable. No free air. No significant fluid collection. Bones/joints: Degenerative changes in the spine. No acute fracture. No dislocation. Soft tissues: Umbilical hernia containing fat. Vasculature: Aortobiiliac endograft changes. Consider contrast- enhanced imaging if there is further concern for complication. No abdominal aortic aneurysm. Lymph nodes: Unremarkable. No enlarged lymph nodes. IMPRESSION: 1. No evidence of radiopaque renal calculi or signs of collecting system dilatation. 2. Diffuse bladder wall thickening with adjacent stranding. Findings can be seen with cystitis. Consider correlation with laboratory values. 3. Aortobiiliac endograft changes. Consider contrast-enhanced imaging if there is further concern for complication. 4. No other acute findings. 5. Incidental findings as described.
[2023-08-05 06:57] VITALS: BP 98/66; PULSE 69; RESP 18
== END 2023-08-05 06:00 | disposition home or self-care (01) ==
LOC: EC 22:38
DX: N39.0 Urinary tract infection, site not specified (principal); N30.90 Cystitis, unspecified without hematuria; F12.90 Cannabis use, unspecified, uncomplicated; F17.200 Nicotine dependence, unspecified, uncomplicated
CPT/HCPCS: 51798; 36415 ×2; 80053; 83605; 85025; 81001; 81025; 87040; 87086; 87077; 87186; 74176; 99285; 96374; 96375 ×2; 96376 ×2; 96361; J0696; J1170 ×2; J1885

== ENCOUNTER 2023-11-12 02:13 | Emergency (ER) | payer BC ==
[2023-11-12] MEDS: HYDROmorphone 1 MG/ML 1 ML SYRINGE IVP STA (03:47)
[2023-11-12] MEDS: SODIUM CHLORIDE 0.9% 500 ML 500 ML IV STA (03:50)
[2023-11-12 04:32] LABS: Basophils % (A) 0 %; Eosinophils # (A) 0.1 k/uL (0-0.7); Eosinophils % (A) 1 %; HCT 40.6 % (34.0-46.0); HGB 13.8 gm/dL (11.4-16.0); Lymphocytes # (A) 2.9 k/uL (1.0-4.8); Lymphocytes % (A) 25 %; MCH 30.8 pg (25.0-35.0); MCHC 33.9 g/dL (31.0-37.0); Mean Platelet Volume 8.8; Monocytes # (A) 0.3 k/uL (0-1.0); Monocytes % (A) 3 %; Neutrophils # (A) 7.9 k/uL (1.3-7.7); Neutrophils % (A) 70 %; Platelet Count 265 k/uL (150-450); RBC 4.46 m/uL (3.80-5.40); RDW 12.8 % (11.5-15.5); WBC 11.3 k/uL (3.8-10.6)
[2023-11-12 04:50] LABS: ALT 16 U/L (4-34); AST 16 U/L (14-36); African American GFR (CKD) 88 (>60 ml/min/1.73 sqM); Alkaline Phosphatase 84 U/L (38-126); Anion Gap 6 mmol/L; Blood Urea Nitrogen 17 mg/dL (7-17); C Reactive Protein 0.8 mg/dL (<1.0); Calcium 9.7 mg/dL (8.4-10.2); Carbon Dioxide 21 mmol/L (22-30); Chloride 101 mmol/L (98-107); Glucose 229 mg/dL (74-99); Non-African American GFR(CKD) 76 (>60 ml/min/1.73 sqM); Potassium 4.3 mmol/L (3.5-5.1); Sodium 128 mmol/L (137-145); Total Bilirubin 0.3 mg/dL (0.2-1.3); Total Protein 6.9 g/dL (6.3-8.2)
[2023-11-12 05:18] LABS: INR 1.9 (<1.2)
[2023-11-12 06:20] VITALS: PULSE 69; RESP 16
--- NOTE | 2023-11-12 06:32 | CT ---
EXAM: CT Head Without and With Intravenous Contrast CLINICAL HISTORY: ITS.REASON CT Reason: headache TECHNIQUE: Axial computed tomography images of the head/brain without and with intravenous contrast. CTDI is 98.2 mGy and DLP is 2364.4 mGy-cm. This CT exam was performed using one or more of the following dose reduction techniques: automated exposure control, adjustment of the mA and/or kV according to patient size, and/or use of iterative reconstruction technique. COMPARISON: No relevant prior studies available. FINDINGS: Brain: There are a few areas of decreased attenuation in the deep cerebral white matter consistent with mild small vessel ischemic/degenerative changes. The cerebral and cerebellar sulci are mildly prominent consistent with mild brain atrophy. No hemorrhage. No gross evidence of abnormal enhancement. Ventricles: Unremarkable. No ventriculomegaly. Bones/joints: Unremarkable. No acute fracture. Soft tissues: Unremarkable. Vasculature: Atherosclerotic disease. Sinuses: Unremarkable as visualized. Mastoid air cells: Unremarkable as visualized. No mastoid effusion. 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 IMPRESSION: No gross evidence of abnormal enhancement. Recommend MRI if there is further concern given markedly limited evaluation of CT for intracranial masses.
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
[2023-11-12 07:20] VITALS: BP 132/84; TEMP 97.6
== END 2023-11-12 07:29 | disposition home or self-care (01) ==
LOC: EC 02:13
CPT/HCPCS: 36415; 70470; 80053; 85025; 85610; 85730; 86140; 96374; 99284